=== PATIENT | female | born 1990 | race Caucasian/White ===

== ENCOUNTER 2020-05-19 08:44 | Emergency (ER) | payer OTHER, SELFPAY ==
--- NOTE | ~2020-05-19 | US_ITS ---
EXAMINATION: ULTRASOUND PELVIS COMPLETE AND DOPPLER. CLINICAL INFORMATION: Left lower quadrant abdominal pain. History of ovarian cyst. COMPARISON: Ultrasound abdomen 10/08/2018 TECHNIQUE: Retained transabdominal and transvaginal ultrasound pelvis is performed. In addition a Doppler evaluation both ovaries are performed. FINDINGS: The uterus is anteverted and anteflexed measuring 7.1 cm in length, 3.5 cm in AP and 4.4 cm in transverse dimension. Endometrial thickness is 0.4 cm. There are scattered echogenic areas in the endometrial likely blood. The uterus is homogeneous in echotexture. The right ovary measures 5.4 x 2.4 x 3.2 cm and volume 21.7 neural. There are multiple ovarian follicles seen. The left ovary measures 4.1 x 2.0 x 3 1 cm and volume 13.3 mL. There are multiple follicles seen. On Doppler exam there is normal arterial and venous flow seen to both ovaries. US/US pelvic ovarian doppler IMPRESSION: Multiple bilateral ovarian follicles noted. The uterus is unremarkable.
--- NOTE | ~2020-05-19 | US_ITS ---
EXAMINATION: ULTRASOUND PELVIS COMPLETE AND DOPPLER. CLINICAL INFORMATION: Left lower quadrant abdominal pain. History of ovarian cyst. COMPARISON: Ultrasound abdomen 10/08/2018 TECHNIQUE: Retained transabdominal and transvaginal ultrasound pelvis is performed. In addition a Doppler evaluation both ovaries are performed. FINDINGS: The uterus is anteverted and anteflexed measuring 7.1 cm in length, 3.5 cm in AP and 4.4 cm in transverse dimension. Endometrial thickness is 0.4 cm. There are scattered echogenic areas in the endometrial likely blood. The uterus is homogeneous in echotexture. The right ovary measures 5.4 x 2.4 x 3.2 cm and volume 21.7 neural. There are multiple ovarian follicles seen. The left ovary measures 4.1 x 2.0 x 3 1 cm and volume 13.3 mL. There are multiple follicles seen. On Doppler exam there is normal arterial and venous flow seen to both ovaries. US/US transvaginal IMPRESSION: Multiple bilateral ovarian follicles noted. The uterus is unremarkable.
--- NOTE | ~2020-05-19 | US_ITS ---
EXAMINATION: ULTRASOUND PELVIS COMPLETE AND DOPPLER. CLINICAL INFORMATION: Left lower quadrant abdominal pain. History of ovarian cyst. COMPARISON: Ultrasound abdomen 10/08/2018 TECHNIQUE: Retained transabdominal and transvaginal ultrasound pelvis is performed. In addition a Doppler evaluation both ovaries are performed. FINDINGS: The uterus is anteverted and anteflexed measuring 7.1 cm in length, 3.5 cm in AP and 4.4 cm in transverse dimension. Endometrial thickness is 0.4 cm. There are scattered echogenic areas in the endometrial likely blood. The uterus is homogeneous in echotexture. The right ovary measures 5.4 x 2.4 x 3.2 cm and volume 21.7 neural. There are multiple ovarian follicles seen. The left ovary measures 4.1 x 2.0 x 3 1 cm and volume 13.3 mL. There are multiple follicles seen. On Doppler exam there is normal arterial and venous flow seen to both ovaries. US/US pelvic complete IMPRESSION: Multiple bilateral ovarian follicles noted. The uterus is unremarkable.
--- NOTE | ~2020-05-19 | CT_ITS ---
EXAMINATION: CT ABDOMEN AND PELVIS WITH CONTRAST CLINICAL INFORMATION: Left lower quadrant abdominal pain for 3 days with constipation. Query diverticulitis. COMPARISON: None TECHNIQUE: Multidetector volumetric images were obtained from the superior aspect of the liver through the pubic symphysis following administration 82 mL of Omnipaque 350 intravenous contrast. Sagittal and coronal reformatted images were obtained on the technologist's workstation. Oral contrast: No This CT examination was performed using dose optimization techniques as appropriate, variously including the following: *Automated exposure control *Adjustment of mA and/or kV according to patient size (this includes techniques or standardized protocols for targeted exams where dose is matched to indication/reason for exam; i.e. extremities or head) *Use of iterative reconstruction technique DLP: 281 mGy-cm FINDINGS: LUNG BASES: The visualized lung bases are unremarkable. LIVER, GALLBLADDER, AND BILIARY TREE: The liver is normal in size, shape, and attenuation. There is a 1 cm cyst within the medial segment. No suspicious hepatic lesion or biliary ductal dilatation is present. Gallbladder unremarkable. PANCREAS: Unremarkable. SPLEEN: Unremarkable. ADRENAL GLANDS: Unremarkable. KIDNEYS AND URETERS: The kidneys are normal in size, shape, and attenuation. No hydronephrosis, hydroureter, or calculi seen. No perinephric stranding. BLADDER: Unremarkable. GASTROINTESTINAL TRACT: Mild constipation without colonic dilatation. No intestinal obstruction or inflammation. Appendix not well seen, however there are no inflammatory changes in the right lower quadrant to suggest appendicitis. ABDOMINAL WALL: No significant hernia is appreciated. LYMPH NODES: Normal. VASCULAR: Unremarkable. PELVIC VISCERA: Uterus and adnexa unremarkable. OSSEOUS STRUCTURES: Unremarkable. CT/CT abdomen pelvis w con IMPRESSION: No clear etiology for the patient's left lower quadrant pain is identified. Mild constipation without evidence of obstruction.
[2020-05-19 10:14] VITALS: BP 103/66; PULSE 65; RESP 18; TEMP 36.6; O2SAT 100; BMI 16.6
[2020-05-19] MEDS: Ketorolac Tromethamine 30 MG/ML VIAL IVPUSH (10:34)
[2020-05-19 10:54] LABS: MANUAL DIFF FLAG NO
[2020-05-19 10:59] LABS: Glucose Urine UA NEG (NEG); Leukocyte Esterase Urine NEG (NEG); Nitrite Urine NEG (NEG); Specific Gravity - Urine <= 1.005 (1.005-1.025); Urine Blood TRACE (NEG); Urine Ketones NEG (NEG); Urine Protein NEG (NEG-TRACE)
[2020-05-19 11:00] LABS: Appearance Urine CLEAR; Color Urine STRAW
--- NOTE | 2020-05-19 11:00 | ED.ABDPAIN ---
HPI - Abdominal Pain General Chief Complaint: Abdominal Pain Stated Complaint: lower left abd pain Time Seen by Provider: 05/19/20 09:17 Source: patient Mode of arrival: ambulatory Limitations: no limitations History of Present Illness HPI narrative: 30-year-old female with a past medical history of GERD, ovarian cyst, constipation, dysrhythmia, anxiety and depression presenting to the ED with complaints of intermittent pain to the left lower quadrant over the past 6 months worse during her menstrual cycle although worse within the past 3 days. Reports her last bowel movement was this morning and she has been going every morning although small amounts. Denies any other symptoms related to this. MD elicited complaint: abdominal pain Pertinent past history: constipation and other (Ovarian cyst) Onset (ago): day(s) (Three days) Pain Consistency: intermittent Location: LLQ Severity: moderate Quality: cramping and aching Radiation: none Migration to: no migration Exacerbating factors: nothing Relieving factors: nothing Associated symptoms: constipation Related Data Allergies Allergy/AdvReac Type Severity Reaction Status Date / Time sulfamethoxazole Allergy Mild RASH Unverified 11/24/19 19:43 [From BACTRIM] trimethoprim [From BACTRIM] Allergy Mild RASH Unverified 11/24/19 19:43 cefaclor [From Ceclor] Allergy Rash Verified 05/19/20 11:35 Review of Systems Review of Systems Constitutional : No Weight loss, No Fever, No Chills, No Night Sweats, No Fatigue, No Malaise ENT/Mouth: No ear pain, No sore throat, No Difficulty swallowing Cardiovascular : No Chest Pain, No SOB, No Dyspnea on Exertion, No Orthopnea, No Edema, No Palpitations Respiratory : No Cough, No Sputum, No Wheezing, No Dyspnea Gastrointestinal : + Abdominal pain, + Constipation, No Nausea, No Vomiting, No Diarrhea, No Hematochezia, No Melena Genitourinary : No irregular bleeding, No Dysuria, No Urinary Frequency, No Hematuria, No Urinary Incontinence, No Urgency, No Flank Pain Musculoskeletal : No joint pain, No Myalgias, No Joint Swelling Skin : No Skin Lesions, No rash Neuro : No Weakness, No Numbness, No Paresthesias, No Loss of Consciousness, NoDizziness, No Headache Psych : No Social Issues, Heme/Lymph: No Bruising, No Bleeding,No Lymphadenopathy Endocrine : No Polyuria, No Polydipsia, No Temperature Intolerance Yes all other systems are reviewed and are negative Physical Exam Vital Signs: Vital Signs: Last Vital Signs Temp 97.8 F 05/19/20 10:14 Pulse 75 05/19/20 12:17 Resp 18 05/19/20 12:17 BP 116/89 05/19/20 12:17 Pulse Ox 100 05/19/20 12:17 Body Mass Index 16.6 vital signs have been reviewed as normal and appeared to be correct. Blood pressure normal. Heart rate normal. Respiration rate normal. Temperature normal. Oxygen saturation normal. Appearance: Alert. Oriented X3. No acute distress. Head: Normal external exam. Normocephalic. Eyes: PERRLA. EOMI. Conjunctiva and sclera normal. Eyelids normal. ENT: Pharynx normal. Uvula midline. Moist mucous membranes. No trismus noted. No drooling noted. No muffled voice noted. Neck: Normal inspection. Neck supple. FROM. No adenopathy. No meningeal signs. CVS: Normal heart rate and rhythm. Heart sound normal. No murmurs noted. Pulses normal throughout. Respiratory: No respiratory distress. Painless inspiration. Breath sounds normal. No wheezes/rales/rhonchi noted. Chest nontender. No accessory muscle usage noted or decreased air movement noted. Abdomen: Soft and mild tenderness to left lower quadrant. Nondistended. No guarding. No rigidity. Bowel sounds normal in all 4 quadrants. No distention noted. No organomegaly noted. No visible injury noted. No rebound tenderness. Negative Rovsing sign. Negative obturator's sign. Negative psoas sign. Negative Smith sign. Back: No CVA tenderness. Full range of motion noted. Skin: Skin warm and dry. Normal skin color. Normal skin turgor. No rashes/lesions/lacerations noted. Extremities: Extremities exhibit normal range of motion. Extremities nontender. Neuro: Oriented X 3. No motor deficit. No sensory deficit. Reflexes normal. Course Course Course Narrative: 10:20am - 30-year-old female with a past medical history of GERD, ovarian cyst, constipation, dysrhythmia, anxiety and depression presenting to the ED with complaints of intermittent pain to the left lower quadrant over the past 6 months worse during her menstrual cycle although worse within the past 3 days - on exam patient is alert oriented x3. Not in any acute distress. Vital signs are stable within normal limits. Lungs CTA, CV RRR, Patient mild tenderness to left lower quadrant. No rebound tenderness. Not consistent with acute abdomen. No CVA tenderness. Patient neuro intact no focal neuro deficits noted. - concern for ovarian cyst vs ovarian torsion vs diverticulitis vs diverticulosis vs UTI/pyelonephritis. Less concerned for appendicitis or kidney stones - Plan: Labs, UA, UHCG, ovarian Doppler/pelvic/transvaginal ultrasound CT scan of abdomen and pelvis with IV contrast provided 30 mg of Toradol and a L of IV fluids and re-evaluate. Reevaluation(s) Reevaluation #1: - otherwise all other labs are within normal limits. Serum quant negative for . UA within normal limits no evidence of UTI. UHCG negative for . CT scan of abdomen and pelvis revealed constipation otherwise no other acute processes. Ovarian/pelvic/transvaginal ultrasound revealed bilateral ovarian follicles otherwise no other acute processes. - therefore I offered the patient symptomatic treatment although she refused reports that she does not like taking medications she will follow-up with her OBGYN and return if any new or worsening symptoms. Time: 13:08 [facility] - Abdominal Pain Medical Records Attestation: I reviewed the patient's medical records. Lab Data Attestation: I reviewed the patient's lab results. Result diagrams: 05/19/20 10:34 05/19/20 10:34 Labs: Lab Results 05/19/20 05/19/20 05/19/20 Range/Units 10:34 10:34 10:34 WBC 2.7 L (4.8-10.8) X10*3/uL RBC 4.53 (4.20-5.50) X10*6/uL Hgb 12.8 (12.0-16.0) g/dl Hct 39.5 (37-47) % MCV 87.2 (80-98) fL MCH 28.3 (27.0-33.0) pg MCHC 32.4 (31.0-35.0) g/dl RDW 12.4 (11.0-16.0) % Plt Count 244 (160-400) X10*3/uL MPV 9.5 (9.4-12.3) fL Immature Gran % (Auto) 0.4 (0.0-0.4) % Neut % (Auto) 49.6 (45-73) % Lymph % (Auto) 37.4 (20-40) % Wallace % (Auto) 10.0 (2-11) % Eos % (Auto) 1.9 (0-4) % Baso % (Auto) 0.7 (0-2) % Lymph # (Auto) 1.0 L (1.2-4.9) X10*3/uL Wallace # (Auto) 0.3 (0.1-1.2) X10*3/uL Eos # (Auto) 0.1 (0.0-0.4) X10*3/uL Baso # (Auto) 0.0 (0.0-0.2) X10*3/uL Abs Immat Gran (auto) 0.01 (0.00-0.03) X10*3/uL Absolute Neuts (auto) 1.3 L (2.0-8.3) X10*3/uL Absolute Nucleated RBC 0.000 (0.0-0.012) X10*3/uL Nucleated RBC % (auto) 0.0 (0.0-0.2) /100WBC PT 12.2 (10.8-13.0) SEC INR 1.0 (0.9-1.1) Sodium 139 (135-145) mmol/L Potassium 4.7 (3.3-5.1) mmol/L Chloride 106 (96-108) mmol/L Carbon Dioxide 27 (22-29) mmol/L Anion Gap 11 L (12-20) BUN 13 (9-16) mg/dL Creatinine 0.71 (0.5-1.4) mg/dL Estim Creat Clear Calc 81.4 Estimated GFR > 60 Random Glucose 77 (60-115) mg/dL Calcium 9.1 (8.4-10.2) mg/dL Magnesium 1.9 (1.6-2.6) mg/dL Total Bilirubin 0.7 (0.0-1.0) mg/dL Direct Bilirubin 0.2 (0.0-0.5) mg/dL AST 14 (5-31) U/L ALT 7 (0-31) U/L Alkaline Phosphatase 67 (39-117) U/L Total Protein 6.7 (6.5-8.0) g/dL Albumin 4.4 (3.5-5.0) g/dL Beta HCG, Quant mIU/mL Urine Color Urine Appearance Urine pH (5.0-8.0) Ur Specific [place] (1.005-1.025) Urine Protein (NEG-TRACE) MG/DL Urine Glucose (UA) (NEG) MG/DL Urine Ketones (NEG) MG/DL Urine Blood (NEG) Urine Nitrite (NEG) Ur Leukocyte Esterase (NEG) Urine RBC (0) /HPF Urine WBC (0-4) /HPF Ur Squamous Epith Cells /LPF Urine Bacteria /LPF Urine Test (NEGATIVE) 05/19/20 05/19/20 05/19/20 Range/Units 10:34 10:34 10:34 WBC (4.8-10.8) X10*3/uL RBC (4.20-5.50) X10*6/uL Hgb (12.0-16.0) g/dl Hct (37-47) % MCV (80-98) fL MCH (27.0-33.0) pg MCHC (31.0-35.0) g/dl RDW (11.0-16.0) % Plt Count (160-400) X10*3/uL MPV (9.4-12.3) fL Immature Gran % (Auto) (0.0-0.4) % Neut % (Auto) (45-73) % Lymph % (Auto) (20-40) % Wallace % (Auto) (2-11) % Eos % (Auto) (0-4) % Baso % (Auto) (0-2) % Lymph # (Auto) (1.2-4.9) X10*3/uL Wallace # (Auto) (0.1-1.2) X10*3/uL Eos # (Auto) (0.0-0.4) X10*3/uL Baso # (Auto) (0.0-0.2) X10*3/uL Abs Immat Gran (auto) (0.00-0.03) X10*3/uL Absolute Neuts (auto) (2.0-8.3) X10*3/uL Absolute Nucleated RBC (0.0-0.012) X10*3/uL Nucleated RBC % (auto) (0.0-0.2) /100WBC PT (10.8-13.0) SEC INR (0.9-1.1) Sodium (135-145) mmol/L Potassium (3.3-5.1) mmol/L Chloride (96-108) mmol/L Carbon Dioxide (22-29) mmol/L Anion Gap (12-20) BUN (9-16) mg/dL Creatinine (0.5-1.4) mg/dL Estim Creat Clear Calc Estimated GFR Random Glucose (60-115) mg/dL Calcium (8.4-10.2) mg/dL Magnesium (1.6-2.6) mg/dL Total Bilirubin (0.0-1.0) mg/dL Direct Bilirubin (0.0-0.5) mg/dL AST (5-31) U/L ALT (0-31) U/L Alkaline Phosphatase (39-117) U/L Total Protein (6.5-8.0) g/dL Albumin (3.5-5.0) g/dL Beta HCG, Quant < 2 mIU/mL Urine Color STRAW Urine Appearance CLEAR Urine pH 7.0 (5.0-8.0) Ur Specific [place] <= 1.005 (1.005-1.025) Urine Protein NEG (NEG-TRACE) MG/DL Urine Glucose (UA) NEG (NEG) MG/DL Urine Ketones NEG (NEG) MG/DL Urine Blood TRACE (NEG) Urine Nitrite NEG (NEG) Ur Leukocyte Esterase NEG (NEG) Urine RBC 0-2 (0) /HPF Urine WBC 0 (0-4) /HPF Ur Squamous Epith Cells 2+ /LPF Urine Bacteria TRACE /LPF Urine Test NEGATIVE (NEGATIVE) Imaging Data CT scan of abdomen pelvis with IV contrast: Attestation: I personally reviewed and interpreted this imaging study as follows: Radiologist's impression: FINDINGS: LUNG BASES: The visualized lung bases are unremarkable. LIVER, GALLBLADDER, AND BILIARY TREE: The liver is normal in size, shape, and attenuation. There is a 1 cm cyst within the medial segment. No suspicious hepatic lesion or biliary ductal dilatation is present. Gallbladder unremarkable. PANCREAS: Unremarkable. SPLEEN: Unremarkable. ADRENAL GLANDS: Unremarkable. KIDNEYS AND URETERS: The kidneys are normal in size, shape, and attenuation. No hydronephrosis, hydroureter, or calculi seen. No perinephric stranding. BLADDER: Unremarkable. GASTROINTESTINAL TRACT: Mild constipation without colonic dilatation. No intestinal obstruction or inflammation. Appendix not well seen, however there are no inflammatory changes in the right lower quadrant to suggest appendicitis. ABDOMINAL WALL: No significant hernia is appreciated. LYMPH NODES: Normal. VASCULAR: Unremarkable. PELVIC VISCERA: Uterus and adnexa unremarkable. OSSEOUS STRUCTURES: Unremarkable. CT/CT abdomen pelvis w con IMPRESSION: No clear etiology for the patient's left lower quadrant pain is identified. Mild constipation without evidence of obstruction. Pelvic/duplex ovarian ultrasound: Attestation: I personally reviewed and interpreted this imaging study as follows: Radiologist's impression: FINDINGS: The uterus is anteverted and anteflexed measuring 7.1 cm in length, 3.5 cm in AP and 4.4 cm in transverse dimension. Endometrial thickness is 0.4 cm. There are scattered echogenic areas in the endometrial likely blood. The uterus is homogeneous in echotexture. The right ovary measures 5.4 x 2.4 x 3.2 cm and volume 21.7 neural. There are multiple ovarian follicles seen. The left ovary measures 4.1 x 2.0 x 3 1 cm and volume 13.3 mL. There are multiple follicles seen. On Doppler exam there is normal arterial and venous flow seen to both ovaries. US/US transvaginal IMPRESSION: Multiple bilateral ovarian follicles noted. The uterus is unremarkable. Discharge Plan Discharge Clinical Impression: Constipation, Graafian follicle cyst Patient Disposition: Home, Self-Care Instructions: Ovarian Cyst (ED), Constipation (ED) Additional Instructions: I could not find information in our charting system for ovarian follicles therefore I gave you information for ovarian cyst due to your report he also had a history of that although the difference between follicles and psis are that follicles have microscopic oocyte (eggs) maturing inside of it a simple cyst does not. Please follow-up with your primary care provider/OBGYN for further evaluation and treatment. Return if any new or worsening symptoms. Referrals: Alma Verma MD [Primary Care Provider] - 2 days Bryce Sanchez MD [Physician] - 2 days Stand Alone Forms: Work/School Release Print Language: [place] [facility] Past Medical History Attestation statement: The following information was validated with the patient. Social History Social History Alcohol intake: current Alcohol intake frequency: a few times a month Smoking Status: Never smoker Use of substances other than those prescribed or required for medical reasons: No Advance Directives: No Advance Directives Information Provided: No
[2020-05-19 11:01] LABS: UPreg QC Valid YES; Urine Pregnancy NEGATIVE (NEGATIVE)
[2020-05-19 11:05] LABS: Prothrombin Time 12.2 SEC (10.8-13.0)
[2020-05-19 11:08] LABS: Basophils Percent Auto 0.7 % (0-2); Eosinophils Absolute Auto 0.1 X10*3/uL (0.0-0.4); Eosinophils Percent Auto 1.9 % (0-4); Hematocrit 39.5 % (37-47); Hemoglobin 12.8 g/dl (12.0-16.0); Imm Gran Abs Auto 0.01 X10*3/uL (0.00-0.03); Imm Gran Pct Auto 0.4 % (0.0-0.4); Lymphocytes Percent Auto 37.4 % (20-40); Mean Corpuscular HGB Conc 32.4 g/dl (31.0-35.0); Mean Corpuscular Hemoglobin 28.3 pg (27.0-33.0); Mean Corpuscular Volume 87.2 fL (80-98); Mean Platelet Volume 9.5 fL (9.4-12.3); Monocytes Absolute Auto 0.3 X10*3/uL (0.1-1.2); Neutrophils Absolute Auto 1.3 X10*3/uL (2.0-8.3); Neutrophils Percent Auto 49.6 % (45-73); Platelet Count 244 X10*3/uL (160-400); Red Blood Count 4.53 X10*6/uL (4.20-5.50); Red Cell Distribution Width 12.4 % (11.0-16.0); White Blood Count 2.7 X10*3/uL (4.8-10.8)
[2020-05-19 11:11] LABS: Bacteria Urine TRACE /LPF; RBC Urine 0-2 /HPF (0); Squamous Epithelial Cell Urine 2+ /LPF; WBC Urine 0 /HPF (0-4)
[2020-05-19 11:24] LABS: Alanine Aminotransferase 7 U/L (0-31); Albumin Level 4.4 g/dL (3.5-5.0); Alkaline Phosphatase 67 U/L (39-117); Anion Gap 11 (12-20); Aspartate Amino Transferase 14 U/L (5-31); Bilirubin Direct 0.2 mg/dL (0.0-0.5); Bilirubin Total 0.7 mg/dL (0.0-1.0); Blood Urea Nitrogen 13 mg/dL (9-16); Calcium 9.1 mg/dL (8.4-10.2); Carbon Dioxide 27 mmol/L (22-29); Chloride 106 mmol/L (96-108); Creatinine Clr Calc Pharmacy 81.4; Estimated Glomerular Filt Rate > 60; Glucose Random 77 mg/dL (60-115); Magnesium 1.9 mg/dL (1.6-2.6); Potassium 4.7 mmol/L (3.3-5.1); Sodium 139 mmol/L (135-145); Total Protein 6.7 g/dL (6.5-8.0)
[2020-05-19 11:26] LABS: HCG Quantitative < 2 mIU/mL
[2020-05-19] MEDS: 0.9 % Sodium Chloride 1,000 ML 999 ML IVCONT (11:34)
[2020-05-19 12:17] VITALS: BP 116/89; PULSE 75; RESP 18; O2SAT 100
--- NOTE | 2020-05-19 12:20 | PC.NURSE ---
Awaiting results of all imaging studies and disposition. IVF running.VSS
== END 2020-05-19 13:31 | disposition home or self-care (01) ==
PROVIDERS: Physician Assistant Medical; Emergency Provider Emergency Medicine; PCP Internal Medicine
DX: K59.00 Constipation, unspecified (principal); N83.02 Follicular cyst of left ovary; N83.01 Follicular cyst of right ovary; R10.32 Left lower quadrant pain
CPT/HCPCS: 36415; 74177; 76830; 76856; 80048; 80076; 81001; 81025; 83735; 84702; 85025; 85610; 93975; 96361; 96365; 96375; 99284; J1885; Q9967

== ENCOUNTER 2021-03-18 12:24 | Outpatient (REF) | payer OTHER, SELFPAY ==
--- NOTE | ~2021-03-18 | XR_ITS ---
EXAMINATION: XR CHEST CLINICAL INFORMATION: Pneumonia COMPARISON: None TECHNIQUE: 2 views of the chest were obtained. FINDINGS: No significant abnormality is noted involving the heart, lungs, mediastinum, bony thorax or soft tissues. XR/XR chest 2V IMPRESSION: Unremarkable chest examination.
[2021-03-18 13:20] LABS: Binax Internal Control QC Valid; Binax Now Covid-19 Ag Negative (Negative)
== END 2021-03-18 12:25 | disposition home or self-care (01) ==
LOC: HO.HMGCX 12:24
PROVIDERS: Visit Provider Internal Medicine
DX: J18.9 Pneumonia, unspecified organism (principal); J06.9 Acute upper respiratory infection, unspecified
CPT/HCPCS: 36415; 71046

== ENCOUNTER 2021-05-22 20:26 | Emergency (ER) | payer OTHER, MEDICAID, SELFPAY ==
--- NOTE | ~2021-05-22 | US_ITS ---
EXAMINATION: US PELVIS CLINICAL INFORMATION: Left lower quadrant pain with history of 5 cm ovarian cyst COMPARISON: Ultrasound pelvis and CT abdomen pelvis 05/19/2020 TECHNIQUE: Ultrasound of the pelvis is performed using both transabdominal and transvaginal transducers along with Doppler. Transvaginal imaging is performed due to inadequate visualization transabdominally. FINDINGS: Uterus: The anteverted uterus is anteverted and measures 7.5 x 3.5 x 4.2 cm for a volume of 58 mL. The double wall endometrial thickness is 0.4 mm. The uterus is smooth in contour and has normal myometrial echogenicity. No visible fibroid. Adnexa: Both ovaries are visualized. There is normal color flow to the adnexa. There is no ovarian torsion. There is no pelvic ascites or fluid collection. Right ovary measures 3.8 x 2.0 x 2.1 CM for a volume of 8.4 mL Left ovary measures 6.5 x 6.3 x 6.0 cm for a volume of 129 mL and contains a 5.6 x 4.4 x 5.3 cm complex ovarian cyst. This is a new finding when compared to the prior study and most likely represents a hemorrhagic cyst. US/US pelvic complete IMPRESSION: Large 5.6 cm complex ovarian cyst with low level echoes throughout and some anechoic areas. Follow-up study is recommended in 3 months time. No evidence of ovarian torsion.
[2021-05-22 20:36] VITALS: BP 142/76; PULSE 63; RESP 16; TEMP 36.7; O2SAT 100; BMI 18.3
[2021-05-22 21:40] LABS: MANUAL DIFF FLAG NO
[2021-05-22 21:41] LABS: Basophils Percent Auto 0.3 % (0-2); Eosinophils Absolute Auto 0.1 X10*3/uL (0.0-0.4); Eosinophils Percent Auto 1.1 % (0-4); Hemoglobin 12.2 g/dl (12.0-16.0); Imm Gran Abs Auto 0.02 X10*3/uL (0.00-0.03); Imm Gran Pct Auto 0.3 % (0.0-0.4); Lymphocytes Percent Auto 31.9 % (20-40); Mean Corpuscular HGB Conc 33.9 g/dl (31.0-35.0); Mean Corpuscular Volume 85.7 fL (80.0-98.0); Mean Platelet Volume 9.4 fL (9.4-12.3); Monocytes Absolute Auto 0.4 X10*3/uL (0.1-1.2); Monocytes Percent Auto 6.6 % (2-11); Neutrophils Absolute Auto 3.8 x10*3/uL (2.0-8.3); Neutrophils Percent Auto 59.8 % (45-73); Platelet Count 251 X10*3/uL (160-400); Red Cell Distribution Width 11.9 % (11.0-16.0); White Blood Count 6.4 X10*3/uL (4.8-10.8)
[2021-05-22 21:48] LABS: Appearance Urine CLEAR; Color Urine STRAW; Glucose Urine UA NEG (NEG); Leukocyte Esterase Urine NEG (NEG); Nitrite Urine NEG (NEG); PH 6.5 (5.0-8.0); Specific Gravity - Urine <= 1.005 (1.005-1.025); Urine Blood NEG (NEG); Urine Ketones NEG (NEG); Urine Protein NEG (NEG-TRACE)
[2021-05-22 21:49] LABS: UPreg QC Valid YES; Urine Pregnancy NEGATIVE (NEGATIVE)
[2021-05-22 21:53] LABS: RBC Urine 0 /HPF (0); Squamous Epithelial Cell Urine TRACE /LPF; WBC Urine 0 /HPF (0-4)
[2021-05-22 21:58] LABS: Anion Gap 11 (12-20); Blood Urea Nitrogen 9 mg/dL (9-16); Carbon Dioxide 23 mmol/L (22-29); Chloride 99 mmol/L (96-108); Creatinine Clr Calc Pharmacy 96.9; Estimated Glomerular Filt Rate > 60; Glucose Random 81 mg/dL (60-115); Potassium 4.3 mmol/L (3.3-5.1); Sodium 129 mmol/L (135-145)
[2021-05-22 22:21] VITALS: BP 108/73; PULSE 57; RESP 16; TEMP 37.1; O2SAT 100
--- NOTE | 2021-05-22 22:25 | ED_ITS ---
HPI - Female Genitourinary General Chief complaint: Abdominal Pain Stated complaint: ovarian cysts..abd pain Time Seen by Provider: 05/22/21 22:24 Source: patient Mode of arrival: ambulatory Limitations: no limitations History of Present Illness HPI Narrative: Patient history of bilateral ovarian cyst had ultrasound done in 04/30 at PCP's office showed left ovarian cyst 5 cm and right ovarian cyst 2.5 cm today since 15:00 patient noticed pain in left lower abdomen with slight dizziness and nausea no vomiting no urinary complaints patient does have history of constipation but last bowel movement was yesterday after arrival patient feeling much better now Related Data Home Medications Medication Instructions Recorded Confirmed levocetirizine 5 mg tablet (Xyzal) 5 mg PO DAILY 08/28/20 pantoprazole 20 mg tablet,delayed 20 mg PO BID tab 08/28/20 release Previous Rx's Medication Instructions Recorded fluticasone propionate 50 2 spray INTRANASAL DAILY #16 g 08/28/20 mcg/actuation nasal spray,suspension (Flonase Allergy Relief) prednisone 20 mg tablet 40 mg PO DAILY 5 Days #10 tab 08/28/20 albuterol sulfate 90 mcg/actuation 1 inh INHALATION QID PRN #6.7 g 03/18/21 aerosol inhaler doxycycline hyclate 100 mg tablet 100 mg PO BID #20 tab 03/18/21 ondansetron 4 mg disintegrating 4 mg PO Q6H PRN #20 tab 03/18/21 tablet ibuprofen 600 mg tablet 600 mg PO Q6H PRN #20 tab 05/23/21 tramadol 50 mg tablet 50 mg PO Q6H PRN #20 tab 05/23/21 Allergies Allergy/AdvReac Type Severity Reaction Status Date / Time sulfamethoxazole Allergy Mild RASH Verified 03/18/21 12:03 [From BACTRIM] trimethoprim [From BACTRIM] Allergy Mild RASH Verified 03/18/21 12:03 cefaclor [From Ceclor] Allergy Rash Verified 03/18/21 12:03 Review of Systems Review of Systems: Yes all other systems are reviewed and are negative [facility] Past Medical History Medical History (Updated 05/23/21 @ 00:21 by Alberto Lin MD) Ovarian cyst Social History Social History Alcohol intake: current Alcohol intake frequency: a few times a month Patient Tobacco Use Status: Never used Tobacco Advance Directives: No Patient : No Physical Exam Vital Signs: Vital Signs: Last Vital Signs Temp 98.8 F 05/22/21 22:21 Pulse 57 05/22/21 22:21 Resp 16 05/22/21 22:21 BP 108/73 05/22/21 22:21 Pulse Ox 100 05/22/21 22:21 BMI result Body Mass Index 18.3 Appearance: Alert. Oriented X3. No acute distress. ENT: Pharynx normal. Oral Mucosa moist Neck: Normal inspection. Neck supple. CVS: Normal heart rate and rhythm. Pulses normal. Respiratory: No respiratory distress. Equal air entry bilateral, Abdomen: Soft , left lower quadrant tenderness, no rebound tenderness Bowel sounds are present, no mass palpable, no CVA tenderness Skin: Skin warm and dry. Normal skin color. Normal skin turgor. Extremities: No lower extremity edema. No calf tenderness Neuro: Oriented X 3. MDM - Female Genitourinary MDM Narrative Medical decision making narrative: Patient ultrasound showed same size left ovarian cyst with likely hemorrhage inside. There is a cause of the pain. Patient feeling much better now. Patient advised to follow with community resource consultant Lab Data Attestation: I reviewed the patient's lab results. Result diagrams: 05/22/21 21:35 05/22/21 21:35 Labs: Lab Results 05/22/21 05/22/21 05/22/21 Range/Units 21:35 21:35 21:35 WBC 6.4 (4.8-10.8) X10*3/uL RBC 4.20 (4.20-5.50) X10*6/uL Hgb 12.2 (12.0-16.0) g/dl Hct 36.0 L (37.0-47.0) % MCV 85.7 (80.0-98.0) fL MCH 29.0 (27.0-33.0) pg MCHC 33.9 (31.0-35.0) g/dl RDW 11.9 (11.0-16.0) % Plt Count 251 (160-400) X10*3/uL MPV 9.4 (9.4-12.3) fL Immature Gran % (Auto) 0.3 (0.0-0.4) % Neut % (Auto) 59.8 (45-73) % Lymph % (Auto) 31.9 (20-40) % Geary % (Auto) 6.6 (2-11) % Eos % (Auto) 1.1 (0-4) % Baso % (Auto) 0.3 (0-2) % Lymph # (Auto) 2.0 (1.2-4.9) X10*3/uL Geary # (Auto) 0.4 (0.1-1.2) X10*3/uL Eos # (Auto) 0.1 (0.0-0.4) X10*3/uL Baso # (Auto) 0.0 (0.0-0.2) X10*3/uL Abs Immat Gran (auto) 0.02 (0.00-0.03) X10*3/uL Absolute Neuts (auto) 3.8 (2.0-8.3) x10*3/uL Absolute Nucleated RBC 0.000 (0.0-0.012) X10*3/uL Nucleated RBC % (auto) 0.0 (0.0-0.2) /100WBC Sodium 129 L (135-145) mmol/L Potassium 4.3 (3.3-5.1) mmol/L Chloride 99 (96-108) mmol/L Carbon Dioxide 23 (22-29) mmol/L Anion Gap 11 L (12-20) BUN 9 (9-16) mg/dL Creatinine 0.65 (0.5-1.4) mg/dL Estim Creat Clear Calc 96.9 Estimated GFR > 60 Random Glucose 81 (60-115) mg/dL Calcium 9.0 (8.4-10.2) mg/dL Urine Color STRAW Urine Appearance CLEAR Urine pH 6.5 (5.0-8.0) Ur Specific [place] <= 1.005 (1.005-1.025) Urine Protein NEG (NEG-TRACE) MG/DL Urine Glucose (UA) NEG (NEG) MG/DL Urine Ketones NEG (NEG) MG/DL Urine Blood NEG (NEG) Urine Nitrite NEG (NEG) Ur Leukocyte Esterase NEG (NEG) Urine RBC 0 (0) /HPF Urine WBC 0 (0-4) /HPF Ur Squamous Epith Cells TRACE /LPF Urine Bacteria NONE /LPF Urine Test (NEGATIVE) 05/22/21 Range/Units 21:35 WBC (4.8-10.8) X10*3/uL RBC (4.20-5.50) X10*6/uL Hgb (12.0-16.0) g/dl Hct (37.0-47.0) % MCV (80.0-98.0) fL MCH (27.0-33.0) pg MCHC (31.0-35.0) g/dl RDW (11.0-16.0) % Plt Count (160-400) X10*3/uL MPV (9.4-12.3) fL Immature Gran % (Auto) (0.0-0.4) % Neut % (Auto) (45-73) % Lymph % (Auto) (20-40) % [place]ary % (Auto) (2-11) % Eos % (Auto) (0-4) % Baso % (Auto) (0-2) % Lymph # (Auto) (1.2-4.9) X10*3/uL [place]ary # (Auto) (0.1-1.2) X10*3/uL Eos # (Auto) (0.0-0.4) X10*3/uL Baso # (Auto) (0.0-0.2) X10*3/uL Abs Immat Gran (auto) (0.00-0.03) X10*3/uL Absolute Neuts (auto) (2.0-8.3) x10*3/uL Absolute Nucleated RBC (0.0-0.012) X10*3/uL Nucleated RBC % (auto) (0.0-0.2) /100WBC Sodium (135-145) mmol/L Potassium (3.3-5.1) mmol/L Chloride (96-108) mmol/L Carbon Dioxide (22-29) mmol/L Anion Gap (12-20) BUN (9-16) mg/dL Creatinine (0.5-1.4) mg/dL Estim Creat Clear Calc Estimated GFR Random Glucose (60-115) mg/dL Calcium (8.4-10.2) mg/dL Urine Color Urine Appearance Urine pH (5.0-8.0) Ur Specific [place] (1.005-1.025) Urine Protein (NEG-TRACE) MG/DL Urine Glucose (UA) (NEG) MG/DL Urine Ketones (NEG) MG/DL Urine Blood (NEG) Urine Nitrite (NEG) Ur Leukocyte Esterase (NEG) Urine RBC (0) /HPF Urine WBC (0-4) /HPF Ur Squamous Epith Cells /LPF Urine Bacteria /LPF Urine Test NEGATIVE (NEGATIVE) Discharge Plan Discharge Clinical Impression: Ovarian cyst Patient Disposition: Home, Self-Care Instructions: Ovarian Cyst (ED) Additional Instructions: Take ibuprofen for pain Follow-up with shoe patternmaker Report to the ER if increasing pain Prescriptions: New tramadol 50 mg tablet 50 mg PO Q6H PRN (Reason: pain) Qty: 20 0RF ibuprofen 600 mg tablet 600 mg PO Q6H PRN (Reason: pain) Qty: 20 0RF No Action pantoprazole 20 mg tablet,delayed release (DR/EC) 20 mg PO BID 0RF levocetirizine [Xyzal] 5 mg tablet 5 mg PO DAILY 0RF prednisone 20 mg tablet 40 mg PO DAILY 5 Days Qty: 10 0RF fluticasone propionate [Flonase Allergy Relief] 50 mcg/actuation spray,suspension 2 spray intranasal DAILY Qty: 16 0RF Rx Instructions: administer into each nostril ondansetron 4 mg tablet,disintegrating 4 mg PO Q6H PRN (Reason: nausea and vomiting) Qty: 20 0RF albuterol sulfate 90 mcg/actuation HFA aerosol inhaler 1 inh inhalation QID PRN (Reason: shortness of breath or wheezing) Qty: 6.7 1RF doxycycline hyclate 100 mg tablet 100 mg PO BID Qty: 20 0RF Referrals: Bryce Sanchez MD [Physician] - 1 week Interventions: ED Discharge Assessment Last Done: 05/23/21 00:43 Discharge Date/Time: 05/23/21 00:48
== END 2021-05-23 00:48 | disposition home or self-care (01) ==
PROVIDERS: Emergency Provider Internal Medicine; PCP Internal Medicine
DX: R10.2 Pelvic and perineal pain (principal); N83.202 Unspecified ovarian cyst, left side; N83.201 Unspecified ovarian cyst, right side; Z79.899 Other long term (current) drug therapy
CPT/HCPCS: 36415; 76856; 80048; 81001; 81025; 85025; 99284

== ENCOUNTER 2021-07-08 13:49 | Emergency (ER) | payer OTHER, MEDICAID, SELFPAY ==
--- NOTE | ~2021-07-08 | CT_ITS ---
EXAMINATION: CT ABDOMEN AND PELVIS WITH CONTRAST CLINICAL INFORMATION: Left lower quadrant pain, history of ovarian cyst COMPARISON: 05/19/2020 TECHNIQUE: Multidetector volumetric images were obtained from the superior aspect of the liver through the pubic symphysis following administration 85 mL of Omnipaque 350 intravenous contrast. Sagittal and coronal reformatted images were obtained on the technologist's workstation. Oral contrast: No This CT examination was performed using dose optimization techniques as appropriate, variously including the following: *Automated exposure control *Adjustment of mA and/or kV according to patient size (this includes techniques or standardized protocols for targeted exams where dose is matched to indication/reason for exam; i.e. extremities or head) *Use of iterative reconstruction technique DLP: 288 mGy-cm FINDINGS: LUNG BASES: The visualized lung bases are unremarkable. LIVER, GALLBLADDER, AND BILIARY TREE: The liver is normal in size, shape, and attenuation. A few tiny scattered subcentimeter hypoattenuating foci in the liver suggestive of cysts. No biliary ductal dilatation is present. The gallbladder is unremarkable with no evidence of radiopaque gallstones, gallbladder wall thickening, or obvious pericholecystic inflammatory changes. PANCREAS: Unremarkable. SPLEEN: Unremarkable. ADRENAL GLANDS: Unremarkable. KIDNEYS AND URETERS: Bilateral nephrograms are symmetric. No hydronephrosis or obstructing calculus identified. BLADDER: Unremarkable. GASTROINTESTINAL TRACT: No evidence of bowel obstruction. No significant colonic wall thickening or pericolonic inflammation is identified. The distal portion of the appendix appears borderline dilated (coronal image 39) without significant adjacent inflammatory change. Small amount of pelvic free fluid is present. No free air is seen. ABDOMINAL WALL: No significant hernia is appreciated. LYMPH NODES: Normal. VASCULAR: Unremarkable. PELVIC VISCERA: Unremarkable for patient age. OSSEOUS STRUCTURES: There is degenerative disc disease at L5-S1 with surrounding degenerative endplate change. CT/CT abdomen pelvis w con IMPRESSION: Small amount of nonspecific pelvic free fluid, which may be physiologic. Distal appendix appears borderline dilated, of uncertain clinical significance and without additional convincing findings of appendicitis. Fleischner guidelines were followed.
[2021-07-08 14:58] VITALS: BP 115/83; PULSE 69; RESP 14; TEMP 36.3; O2SAT 99; BMI 18.3
[2021-07-08 15:31] LABS: Appearance Urine HAZY; Color Urine STRAW; Glucose Urine UA NEG (NEG); Leukocyte Esterase Urine NEG (NEG); Nitrite Urine NEG (NEG); PH 6.5 (5.0-8.0); Specific Gravity - Urine <= 1.005 (1.005-1.025); Urine Blood NEG (NEG); Urine Ketones NEG (NEG); Urine Protein NEG (NEG-TRACE)
[2021-07-08 15:34] LABS: UPreg QC Valid YES; Urine Pregnancy NEGATIVE (NEGATIVE)
--- NOTE | 2021-07-08 22:53 | ED_ITS ---
HPI - General Adult General Chief complaint: Abdominal Pain Stated complaint: ovarian cyst, abd pain Time Seen by Provider: 07/08/21 21:20 Source: patient Limitations: no limitations History of Present Illness HPI narrative: This is a 31-year-old female with history of left ovarian cyst complains of pain in her left lower quadrant for a few days. The patient has had similar pain in the past. She was seen here May 22 and had an ultrasound showing a left ovarian cyst. She says that the cyst had ?gotten smaller? after this. She has had more general left lower quadrant pain, not just in her pelvic area, and states that her machine bander and cellophaner helper had recommended she have a CT scan. Patient denies any fever. She has had mild nausea no vomiting. She denies any constipation or diarrhea. She states she has tried using Aleve, Tylenol, and tramadol without relief. She notes that a few weeks ago she did have some rectal bleeding, but has not had any recently. She denies any urinary symptoms. Related Data Home Medications Medication Instructions Recorded Confirmed levocetirizine 5 mg tablet (Xyzal) 5 mg PO DAILY 08/28/20 pantoprazole 20 mg tablet,delayed 20 mg PO BID tab 08/28/20 release Previous Rx's Medication Instructions Recorded fluticasone propionate 50 2 spray INTRANASAL DAILY #16 g 08/28/20 mcg/actuation nasal spray,suspension (Flonase Allergy Relief) prednisone 20 mg tablet 40 mg PO DAILY 5 Days #10 tab 08/28/20 albuterol sulfate 90 mcg/actuation 1 inh INHALATION QID PRN #6.7 g 03/18/21 aerosol inhaler doxycycline hyclate 100 mg tablet 100 mg PO BID #20 tab 03/18/21 ondansetron 4 mg disintegrating 4 mg PO Q6H PRN #20 tab 03/18/21 tablet ibuprofen 600 mg tablet 600 mg PO Q6H PRN #20 tab 05/23/21 tramadol 50 mg tablet 50 mg PO Q6H PRN #20 tab 05/23/21 Allergies Allergy/AdvReac Type Severity Reaction Status Date / Time sulfamethoxazole Allergy Mild RASH Verified 03/18/21 12:03 [From BACTRIM] trimethoprim [From BACTRIM] Allergy Mild RASH Verified 03/18/21 12:03 cefaclor [From Ceclor] Allergy Rash Verified 03/18/21 12:03 Review of Systems Review of Systems: Yes all other systems are reviewed and are negative Constitutional: Constitutional: Reports as per HPI and Denies fever(s) Eyes: Eyes: Reports as per HPI and Reports no additional eye complaints ENT: Reports system reviewed and no additional complaints, except as documented, Reports as per HPI, Denies nasal congestion, Denies nasal discharge and Denies sore throat Cardiovascular: Cardiovascular: Reports as per HPI, Denies chest pain and Denies dyspnea Respiratory: Respiratory: Reports as per HPI, Denies cough and Denies dyspnea Gastrointestinal: Gastrointestinal: Reports as per HPI, Reports abdominal pain, Denies diarrhea, Reports nausea and Denies vomiting Genitourinary: Genitourinary: Reports as per HPI, Denies hematuria, Denies urinary frequency and Denies dysuria Musculoskeletal: Musculoskeletal: Reports no additional musculoskeletal complaints and Denies numbness Integumentary/Breasts: Skin/Breast: Reports as per HPI and Denies rash Neurologic: Reports as per HPI, Denies focal weakness and Denies numbness Psychiatric: Psychiatric: Reports no additional psychiatric complaints and Reports as per HPI Endocrine: Endocrine: Reports no additional endocrine complaints and Reports as per HPI Hematologic/Lymphatic: Hematologic/Lymphatic: Reports no additional hematologic/lymphatic complaints, Reports as per HPI and Reports other (No peripheral edema) PENDING SALE TO [facility] Past Medical History Medical History (Updated 07/09/21 @ 02:26 by Matias Hobson MD) Ovarian cyst Social History Social History Alcohol intake: current Alcohol intake frequency: a few times a month Patient Tobacco Use Status: Never used Tobacco Advance Directives: No Advance Directives Information Provided: No Physical Exam ED Vital Signs: Vital Signs - 24 hr 07/08/21 14:58 07/08/21 23:57 Temperature 97.4 F Pulse Rate 69 59 Respiratory Rate 14 14 Blood Pressure 115/83 105/69 Pulse Oximetry 99 96 BMI result Body Mass Index 18.3 Const Other: Patient overall not ill appearing, is able to the set up on the gurney easily. Patient is thin appearing General: no acute distress Orientation/consciousness: patient oriented x3 HENMT Head: Yes normal to inspection General nose exam: Normal external nose present Mouth: moist mucous membranes Throat: Yes posterior oropharynx normal, Yes tonsils normal and Yes uvula midline Eyes Eyelids: Yes eyelids normal Conjunctivae: conjunctivae normal Pupils: Equal, round and reactive pupils present Neck Neck: Yes supple Resp Effort & Inspection: normal respiratory effort Auscultation: clear to auscultation bilaterally Cardio Rate: regular rate Rhythm: regular rhythm Heart sounds: S1 normal heart sound present, S2 normal heart sound present, no gallops, no murmurs and no rubs GI Inspection: No distended Palpation (GI): Soft to palpation and Tenderness to palpation present (GI) (Mild left lower quadrant) Auscultation: normal bowel sounds Skin General skin exam: other (Warm and dry) Neuro General: patient oriented x3 and CN's II-XI intact bilaterally Cranial nerves: Yes Equal, round and reactive pupils present Extrem General: Yes no pedal edema Psych Affect: normal affect Attitude: cooperative Medical Decision Making MDM Narrative Medical decision making narrative: Patient with preoccupation about pain in her left lower quadrant. She apparently has had this for some time and had a CT scan done about a year ago which only showed constipation. She does have a history of left ovarian cyst. She apparently has been seen by Gastroenterology regarding her pain. Urinalysis, labs, CT scan today showed no concerning findings. Patient appears to have some anxiety element or hypochondriasis. Patient is safe for outpatient follow-up. Lab Data Lab results reviewed: Yes I reviewed the patient's lab results. Result diagrams: 07/09/21 00:05 07/09/21 00:05 Labs: Lab Results 07/08/21 07/08/21 07/09/21 Range/Units 15:06 15:06 00:05 WBC 4.6 L (4.8-10.8) X10*3/uL RBC 4.32 (4.20-5.50) X10*6/uL Hgb 12.4 (12.0-16.0) g/dl Hct 37.6 (37.0-47.0) % MCV 87.0 (80.0-98.0) fL MCH 28.7 (27.0-33.0) pg MCHC 33.0 (31.0-35.0) g/dl RDW 12.1 (11.0-16.0) % Plt Count 310 (160-400) X10*3/uL MPV 9.8 (9.4-12.3) fL Immature Gran % (Auto) 0.2 (0.0-0.4) % Neut % (Auto) 49.2 (45-73) % Lymph % (Auto) 39.5 (20-40) % Stokes % (Auto) 7.6 (2-11) % Eos % (Auto) 3.1 (0-4) % Baso % (Auto) 0.4 (0-2) % Lymph # (Auto) 1.8 (1.2-4.9) X10*3/uL Stokes # (Auto) 0.4 (0.1-1.2) X10*3/uL Eos # (Auto) 0.1 (0.0-0.4) X10*3/uL Baso # (Auto) 0.0 (0.0-0.2) X10*3/uL Abs Immat Gran (auto) 0.01 (0.00-0.03) X10*3/uL Absolute Neuts (auto) 2.3 (2.0-8.3) x10*3/uL Absolute Nucleated RBC 0.000 (0.0-0.012) X10*3/uL Nucleated RBC % (auto) 0.0 (0.0-0.2) /100WBC Sodium (135-145) mmol/L Potassium (3.3-5.1) mmol/L Chloride (96-108) mmol/L Carbon Dioxide (22-29) mmol/L Anion Gap (12-20) BUN (9-16) mg/dL Creatinine (0.5-1.4) mg/dL Estim Creat Clear Calc Estimated GFR Random Glucose (60-115) mg/dL Calcium (8.4-10.2) mg/dL Total Bilirubin (0.0-1.0) mg/dL AST (5-31) U/L ALT (0-31) U/L Alkaline Phosphatase (39-117) U/L Total Protein (6.5-8.0) g/dL Albumin (3.5-5.0) g/dL Urine Color STRAW Urine Appearance HAZY Urine pH 6.5 (5.0-8.0) Ur Specific [place] <= 1.005 (1.005-1.025) Urine Protein NEG (NEG-TRACE) MG/DL Urine Glucose (UA) NEG (NEG) MG/DL Urine Ketones NEG (NEG) MG/DL Urine Blood NEG (NEG) Urine Nitrite NEG (NEG) Ur Leukocyte Esterase NEG (NEG) Urine Test NEGATIVE (NEGATIVE) 07/09/21 Range/Units 00:05 WBC (4.8-10.8) X10*3/uL RBC (4.20-5.50) X10*6/uL Hgb (12.0-16.0) g/dl Hct (37.0-47.0) % MCV (80.0-98.0) fL MCH (27.0-33.0) pg MCHC (31.0-35.0) g/dl RDW (11.0-16.0) % Plt Count (160-400) X10*3/uL MPV (9.4-12.3) fL Immature Gran % (Auto) (0.0-0.4) % Neut % (Auto) (45-73) % Lymph % (Auto) (20-40) % Stokes % (Auto) (2-11) % Eos % (Auto) (0-4) % Baso % (Auto) (0-2) % Lymph # (Auto) (1.2-4.9) X10*3/uL Stokes # (Auto) (0.1-1.2) X10*3/uL Eos # (Auto) (0.0-0.4) X10*3/uL Baso # (Auto) (0.0-0.2) X10*3/uL Abs Immat Gran (auto) (0.00-0.03) X10*3/uL Absolute Neuts (auto) (2.0-8.3) x10*3/uL Absolute Nucleated RBC (0.0-0.012) X10*3/uL Nucleated RBC % (auto) (0.0-0.2) /100WBC Sodium 137 (135-145) mmol/L Potassium 4.5 (3.3-5.1) mmol/L Chloride 105 (96-108) mmol/L Carbon Dioxide 26 (22-29) mmol/L Anion Gap 11 L (12-20) BUN 8 L (9-16) mg/dL Creatinine 0.67 (0.5-1.4) mg/dL Estim Creat Clear Calc 94.0 Estimated GFR > 60 Random Glucose 105 (60-115) mg/dL Calcium 9.2 (8.4-10.2) mg/dL Total Bilirubin 0.5 (0.0-1.0) mg/dL AST 13 (5-31) U/L ALT 9 (0-31) U/L Alkaline Phosphatase 53 D (39-117) U/L Total Protein 6.4 L (6.5-8.0) g/dL Albumin 4.0 (3.5-5.0) g/dL Urine Color Urine Appearance Urine pH (5.0-8.0) Ur Specific [place] (1.005-1.025) Urine Protein (NEG-TRACE) MG/DL Urine Glucose (UA) (NEG) MG/DL Urine Ketones (NEG) MG/DL Urine Blood (NEG) Urine Nitrite (NEG) Ur Leukocyte Esterase (NEG) Urine Test (NEGATIVE) Imaging Data CT scan abdomen and pelvis with IV contrast: Radiologist's impression: IMPRESSION: Small amount of nonspecific pelvic free fluid, which may be physiologic. Distal appendix appears borderline dilated, of uncertain clinical significance and without additional convincing findings of appendicitis. ? Discharge Plan Discharge Clinical Impression: Chronic left lower quadrant pain, Anxiety Patient Disposition: Home, Self-Care Additional Instructions: Follow-up with her primary care physician, or machine bander and cellophaner helper. Use ibuprofen as needed for pain. Prescriptions: No Action tramadol 50 mg tablet 50 mg PO Q6H PRN (Reason: pain) Qty: 20 0RF ibuprofen 600 mg tablet 600 mg PO Q6H PRN (Reason: pain) Qty: 20 0RF pantoprazole 20 mg tablet,delayed release (DR/EC) 20 mg PO BID 0RF levocetirizine [Xyzal] 5 mg tablet 5 mg PO DAILY 0RF prednisone 20 mg tablet 40 mg PO DAILY 5 Days Qty: 10 0RF fluticasone propionate [Flonase Allergy Relief] 50 mcg/actuation spray,suspension 2 spray intranasal DAILY Qty: 16 0RF Rx Instructions: administer into each nostril ondansetron 4 mg tablet,disintegrating 4 mg PO Q6H PRN (Reason: nausea and vomiting) Qty: 20 0RF albuterol sulfate 90 mcg/actuation HFA aerosol inhaler 1 inh inhalation QID PRN (Reason: shortness of breath or wheezing) Qty: 6.7 1RF doxycycline hyclate 100 mg tablet 100 mg PO BID Qty: 20 0RF
[2021-07-08 23:57] VITALS: BP 105/69; PULSE 59; RESP 14; O2SAT 96
[2021-07-09 00:12] LABS: MANUAL DIFF FLAG NO
[2021-07-09] MEDS: Ketorolac Tromethamine 15 MG/ML VIAL IVPUSH (00:13)
[2021-07-09 00:29] LABS: Alanine Aminotransferase 9 U/L (0-31); Alkaline Phosphatase 53 U/L (39-117); Anion Gap 11 (12-20); Aspartate Amino Transferase 13 U/L (5-31); Bilirubin Total 0.5 mg/dL (0.0-1.0); Blood Urea Nitrogen 8 mg/dL (9-16); Calcium 9.2 mg/dL (8.4-10.2); Carbon Dioxide 26 mmol/L (22-29); Chloride 105 mmol/L (96-108); Estimated Glomerular Filt Rate > 60; Glucose Random 105 mg/dL (60-115); Potassium 4.5 mmol/L (3.3-5.1); Sodium 137 mmol/L (135-145); Total Protein 6.4 g/dL (6.5-8.0)
[2021-07-09] MEDS: iohexoL 350 MG/ML 100 ML INFUS..BTL 85 ML IV (01:09)
[2021-07-09 01:45] LABS: Basophils Percent Auto 0.4 % (0-2); Eosinophils Absolute Auto 0.1 X10*3/uL (0.0-0.4); Eosinophils Percent Auto 3.1 % (0-4); Hematocrit 37.6 % (37.0-47.0); Hemoglobin 12.4 g/dl (12.0-16.0); Imm Gran Abs Auto 0.01 X10*3/uL (0.00-0.03); Imm Gran Pct Auto 0.2 % (0.0-0.4); Lymphocytes Absolute Auto 1.8 X10*3/uL (1.2-4.9); Lymphocytes Percent Auto 39.5 % (20-40); Mean Corpuscular Hemoglobin 28.7 pg (27.0-33.0); Mean Platelet Volume 9.8 fL (9.4-12.3); Monocytes Absolute Auto 0.4 X10*3/uL (0.1-1.2); Monocytes Percent Auto 7.6 % (2-11); Neutrophils Absolute Auto 2.3 x10*3/uL (2.0-8.3); Neutrophils Percent Auto 49.2 % (45-73); Platelet Count 310 X10*3/uL (160-400); Red Blood Count 4.32 X10*6/uL (4.20-5.50); Red Cell Distribution Width 12.1 % (11.0-16.0); White Blood Count 4.6 X10*3/uL (4.8-10.8)
[2021-07-09 02:32] VITALS: BP 113/77; PULSE 68; RESP 16; O2SAT 100
--- NOTE | 2021-07-09 02:39 | PC.NURSE ---
I assumed nursing care of Michelle at 2300. Since that time she has remained alert and oriented x 3. She states she came to the ED for evaluation of ongoing abdominal issues. When I ask her to describe her symptoms she has difficulty doing so and often begins to discuss procedures and tests and symptoms she had prior to today - zach had this pain for years. She states she has been told she has an ovarian cyst in the past and she wonders if that is the cause of her pain today. She appears extremely thin and pale. The pt states Im not sure Im a fan of that medicine - referring Toradol. She believes it made her nauseated. At time of DC her disbelief in a lack of an unknown cause for her pain is palpable. She expressed distaste in the ER doctor who treated her and expressed her yearning for an answer to whats causing her pain. I assured her that the ER doctors' job is to rule out any emergencies requiring treatment and/or hospitalization and that she could rest assured that she is safe to be discharged. She continued to express her frustration and disbelief that the ER is unable to give her a diagnosis. I encouraged her that no news is better than bad news. She doesnt seem to agree with that notion, however. SHe was extremely bothered by the fact that anxiety was placed on her DC instructions by the discharging doctor. She verbalized an understanding of all DC orders and ambulated out of the ED independently and with steady gait.
== END 2021-07-09 02:47 | disposition home or self-care (01) ==
PROVIDERS: Emergency Provider Emergency Medicine; PCP Internal Medicine
DX: R10.32 Left lower quadrant pain (principal); F41.1 Generalized anxiety disorder; F43.0 Acute stress reaction; Z79.899 Other long term (current) drug therapy
CPT/HCPCS: 36415; 74177; 80053; 81003; 81025; 85025; 99284; J1885; Q9967

== ENCOUNTER 2024-04-07 13:49 | Emergency (ER) | payer OTHER, SELFPAY ==
--- NOTE | ~2024-04-07 | XR_ITS ---
EXAMINATION: XR CHEST CLINICAL INFORMATION: pain COMPARISON: 03/18/2021. TECHNIQUE: 2 views of the chest were obtained. FINDINGS: The cardiac, hilar, and mediastinal contours are normal. The lungs are clear bilaterally. There is no pneumothorax or pleural effusion. There is no focal osseous or soft tissue abnormality. Mild right convex scoliosis of the thoracic spine. XR/XR chest 2V IMPRESSION: No active pulmonary disease. Electronically signed by: Abraham Meier MD 04/07/2024 03:15 PM [facility]
--- NOTE | 2024-04-07 13:50 | ECG_ITS ---
Test Reason : chest pain Blood Pressure : */* mmHG Vent. Rate : 88 BPM Atrial Rate : 88 BPM P-R Int : 122 ms QRS Dur : 100 ms QT Int : 374 ms P-R-T Axes : 57 35 47 degrees QTcB Int : 452 ms Normal sinus rhythm Normal ECG No previous ECGs available Referred By: Generic ED Physician Electronically Signed By: ARASH GARZA
--- NOTE | 2024-04-07 14:02 | ED.GENADULT ---
HPI - General Adult General Chief complaint: Chest Pain Stated complaint: Chest tightness Time Seen by Provider: 04/07/24 18:10 Source: patient Limitations: no limitations History of Present Illness ED Provider: Adelina Alba PA-C HPI narrative: 34-year-old female with a history of anxiety, depression, GERD, IBS with constipation, prior dysrhythmia presents with chest pain. Patient states she has been having intermittent left anterior chest discomfort over the past several days. When it presents, she feels as if her heart is beating ?squeezed?. She is also noting intermittent palpitations. 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 Denies recent cough or cold symptoms or fever. Denies new activity or heavy lifting that could have precipitated her discomfort. Patient does admit that she has been under a great deal of stress lately. Related Data Home Medications ?Medication ?Instructions ?Recorded ?Confirmed levocetirizine 5 mg tablet (Xyzal) 5 mg PO DAILY 08/28/20 pantoprazole 20 mg tablet,delayed 20 mg PO BID 08/28/20 release Previous Rx's ?Medication ?Instructions ?Recorded fluticasone propionate 50 2 spray intranasal DAILY #16 grams 08/28/20 mcg/actuation nasal spray,suspension (Flonase Allergy Relief) albuterol sulfate 90 mcg/actuation 1 inh inhalation QID PRN shortness 03/18/21 aerosol inhaler of breath or wheezing #6.7 grams ondansetron 4 mg disintegrating 4 mg PO Q6H PRN nausea and 03/18/21 tablet vomiting #20 tabs ibuprofen 600 mg tablet 600 mg PO Q6H PRN pain #20 tabs 05/23/21 Allergies Allergy/AdvReac Type Severity Reaction Status Date / Time sulfamethoxazole Allergy Mild RASH Verified 04/07/24 14:04 [From BACTRIM] trimethoprim [From BACTRIM] Allergy Mild RASH Verified 04/07/24 14:04 cefaclor [From Ceclor] Allergy Rash Verified 04/07/24 14:04 Review of Systems Review of Systems: Yes all other systems are reviewed and are negative Constitutional: Constitutional: Denies fatigue and Denies fever(s) Cardiovascular: Cardiovascular: Reports chest pain and Denies dyspnea Respiratory: Respiratory: Denies chest congestion, Denies cough and Denies dyspnea Gastrointestinal: Gastrointestinal: Denies abdominal pain, Denies nausea and Denies vomiting Endocrine: Endocrine: Denies fatigue PMF Past Medical History Attestation statement: The following information was validated with the patient. Medical History (Updated 04/07/24 @ 19:50 by ANDRE Luciano) Ovarian cyst Social History Social History Alcohol intake: current Alcohol intake frequency: a few times a month Patient Tobacco Use Status: Never used Tobacco Smoked in Last 30 Days: No Use of substances other than those prescribed or required for medical reasons: No Advance Directives: No Advance Directives Information Provided: No Do you have a plan to hurt others: No Plan Patient : No Physical Exam ED Vital Signs: Vital Signs - 24 hr 04/07/24 14:03 04/07/24 16:41 04/07/24 17:50 Temperature 98.6 F 98.5 F Pulse Rate 89 88 98 Respiratory Rate 18 16 18 Blood Pressure 132/91 H 120/87 Pulse Oximetry 100 100 97 Oxygen Delivery Method Room Air Room Air Room Air 04/07/24 19:07 Temperature 98.2 F Pulse Rate 81 Respiratory Rate 13 Blood Pressure 113/72 Pulse Oximetry 98 Oxygen Delivery Method Room Air BMI result Body Mass Index 17.5 Const Other: Alert well-appearing Orientation/consciousness: patient oriented x3 Resp Effort & Inspection: normal respiratory effort Cardio Other: Normal peripheral perfusion Skin Other: Warm dry no rash Neuro General: patient oriented x3, gait normal, no focal motor deficits and CN's II-XI intact bilaterally Psych Other: Cooperative Course Course Course Narrative: RME, this is a rapid medical exam performed by Randy Zambrano please refer to primary provider for complete H&P- 34-year-old female presents for evaluation of palpitations over the last few days and chest tightness. She reports bruising her rib about 3 weeks ago at the chiropractor. She had an EKG on arrival, plan for labs and chest x-ray Medical Decision Making Medical Decision Making MDM Narrative: 34-year-old female with a history of anxiety, depression, GERD, IBS with constipation, prior dysrhythmia presents with chest pain. Patient states she has been having intermittent left anterior chest discomfort over the past several days. When it presents, she feels as if her heart is beating ?squeezed?. She is also noting intermittent palpitations. 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 Denies recent cough or cold symptoms or fever. Denies new activity or heavy lifting that could have precipitated her discomfort. Patient does admit that she has been under a great deal of stress lately. Problem: Anxiety History: Per patient I have considered the following differential diagnoses: Anxiety/panic attack, ACS, costochondritis, chest wall strain, PE Plan: ACS was considered, screening labs including cardiac enzymes with a EKG and chest x-ray were obtained from triage. To note the patient's heart score is 0. Thought about PE, however the patient was not complaining of shortness of breath, she is not hypoxic, there are no objective signs symptoms for DVT on exam, she is PERC negative. Thought about costochondritis, however she has not had preceding viral illness, her viral panel is negative. She has no mechanism of injury to suggest chest wall strain. Patient's anxiety and numerous psychosocial stressors could be the cause of her intermittent discomfort. Patient can follow up with primary care. I have independently reviewed the following tests: Labs: No leukocytosis, not anemic, no electrolyte abnormality, not , troponin x2 negative EKG: Normal sinus rhythm, rate 88, no ischemic changes no ectopy Chest x-ray:FINDINGS: The cardiac, hilar, and mediastinal contours are normal. The lungs are clear bilaterally. There is no pneumothorax or pleural effusion. There is no focal osseous or soft tissue abnormality. Mild right convex scoliosis of the thoracic spine. XR/XR chest 2V IMPRESSION: No active pulmonary disease. Electronically signed by: Abraham Meier MD 04/07/2024 03:15 PM [facility] Lab Data 04/07/24 14:31 04/07/24 14:31 Labs: Lab Results 04/07/24 04/07/24 Range/Units 14:31 17:54 WBC 5.7 (4.8-10.8) X10*3/uL RBC 4.17 L (4.20-5.50) X10*6/uL Hgb 12.2 (12.0-16.0) g/dl Hct 35.2 L (37.0-47.0) % MCV 84.4 (80.0-98.0) fL MCH 29.3 (27.0-33.0) pg MCHC 34.7 (31.0-35.0) g/dl RDW 11.9 (11.0-16.0) % Plt Count 267 (160-400) X10*3/uL MPV 8.7 L (9.4-12.3) fL Immature Gran % (Auto) 0.4 (0.0-0.4) % Neut % (Auto) 67.1 (45-73) % Lymph % (Auto) 24.9 (20-40) % [place] % (Auto) 7.2 (2-11) % Eos % (Auto) 0.2 (0-4) % Baso % (Auto) 0.2 (0-2) % Lymph # (Auto) 1.4 (1.2-4.9) X10*3/uL [place] # (Auto) 0.4 (0.1-1.2) X10*3/uL Eos # (Auto) 0.0 (0.0-0.4) X10*3/uL Baso # (Auto) 0.0 (0.0-0.2) X10*3/uL Abs Immat Gran (auto) 0.02 (0.00-0.03) X10*3/uL Absolute Neuts (auto) 3.8 (2.0-8.3) x10*3/uL Absolute Nucleated RBC 0.000 (0.0-0.012) X10*3/uL Nucleated RBC % (auto) 0.0 (0.0-0.2) /100WBC PT 11.7 (10.9-12.4) SEC INR 1.0 (0.9-1.1) D-Dimer High Sensitivty < 150 NG/ML Sodium 131 L (135-145) mmol/L Potassium 3.3 (3.3-5.1) mmol/L Chloride 99 (96-108) mmol/L Carbon Dioxide 27 (22-29) mmol/L Anion Gap 8 L (12-20) BUN 9 (9-16) mg/dL Creatinine 0.66 (0.5-1.4) mg/dL Estim Creat Clear Calc 88.6 Estimated GFR > 60 Random Glucose 99 (60-115) mg/dL Calcium 8.5 D (8.4-10.2) mg/dL Magnesium 2.0 (1.6-2.6) mg/dL Total Bilirubin 0.3 (0.0-1.0) mg/dL AST 20 (5-31) U/L ALT 12 (0-31) U/L Alkaline Phosphatase 74 (39-117) U/L Troponin I High Sens < 2.7 < 2.7 (<3.5-17.0) ng/L Total Protein 6.5 (6.5-8.0) g/dL Albumin 4.0 (3.5-5.0) g/dL Lipase 13 (8-78) U/L TSH 0.31 L (0.32-4.0) uIU/mL Free T4 1.11 (0.71-1.85) ng/dL Beta HCG, Quant < 2 mIU/mL Influenza Type A (PCR) NEGATIVE (Negative) Influenza Type B (PCR) NEGATIVE (Negative) RSV RNA Qual (PCR) NEGATIVE (Negative) SARS-CoV-2 RNA (RT-PCR) NEGATIVE (Negative) Discharge Plan Discharge Clinical Impression: Atypical chest pain, Emotional stress Patient Disposition: Home, Self-Care Instructions: Noncardiac Chest Pain (ED) Additional Instructions: All of your screening labs including 2 cardiac enzymes were normal. There were no concerning changes on your EKG and your chest x-ray is clear. The viral panel was negative as well. Your comfort today is not consistent with cardiac pain. Follow up with your primary care provider as needed. Prescriptions: No Action ibuprofen 600 mg tablet 600 mg PO Q6H PRN (Reason: pain) Qty: 20 0RF pantoprazole 20 mg tablet,delayed release (DR/EC) 20 mg PO BID levocetirizine [Xyzal] 5 mg tablet 5 mg PO DAILY fluticasone propionate [Flonase Allergy Relief] 50 mcg/actuation spray,suspension 2 spray intranasal DAILY Qty: 16 0RF Rx Instructions: administer into each nostril ondansetron 4 mg tablet,disintegrating 4 mg PO Q6H PRN (Reason: nausea and vomiting) Qty: 20 0RF albuterol sulfate 90 mcg/actuation HFA aerosol inhaler 1 inh inhalation QID PRN (Reason: shortness of breath or wheezing) Qty: 6.7 1RF Print Language: Vietnamese
[2024-04-07 14:03] VITALS: BP 132/91; PULSE 89; RESP 18; TEMP 37; O2SAT 100; BMI 17.5
[2024-04-07 14:40] LABS: MANUAL DIFF FLAG NO
[2024-04-07 14:41] LABS: Basophils Percent Auto 0.2 % (0-2); Eosinophils Percent Auto 0.2 % (0-4); Hematocrit 35.2 % (37.0-47.0); Hemoglobin 12.2 g/dl (12.0-16.0); Imm Gran Abs Auto 0.02 X10*3/uL (0.00-0.03); Imm Gran Pct Auto 0.4 % (0.0-0.4); Lymphocytes Absolute Auto 1.4 X10*3/uL (1.2-4.9); Lymphocytes Percent Auto 24.9 % (20-40); Mean Corpuscular HGB Conc 34.7 g/dl (31.0-35.0); Mean Corpuscular Hemoglobin 29.3 pg (27.0-33.0); Mean Corpuscular Volume 84.4 fL (80.0-98.0); Mean Platelet Volume 8.7 fL (9.4-12.3); Monocytes Absolute Auto 0.4 X10*3/uL (0.1-1.2); Monocytes Percent Auto 7.2 % (2-11); Neutrophils Absolute Auto 3.8 x10*3/uL (2.0-8.3); Neutrophils Percent Auto 67.1 % (45-73); Platelet Count 267 X10*3/uL (160-400); Red Blood Count 4.17 X10*6/uL (4.20-5.50); Red Cell Distribution Width 11.9 % (11.0-16.0); White Blood Count 5.7 X10*3/uL (4.8-10.8)
[2024-04-07 14:49] LABS: Prothrombin Time 11.7 SEC (10.9-12.4)
[2024-04-07 14:56] LABS: Alanine Aminotransferase 12 U/L (0-31); Alkaline Phosphatase 74 U/L (39-117); Anion Gap 8 (12-20); Aspartate Amino Transferase 20 U/L (5-31); Bilirubin Total 0.3 mg/dL (0.0-1.0); Blood Urea Nitrogen 9 mg/dL (9-16); Calcium 8.5 mg/dL (8.4-10.2); Carbon Dioxide 27 mmol/L (22-29); Chloride 99 mmol/L (96-108); Creatinine Clr Calc Pharmacy 88.6; Estimated Glomerular Filt Rate > 60; Glucose Random 99 mg/dL (60-115); Lipase 13 U/L (8-78); Potassium 3.3 mmol/L (3.3-5.1); Sodium 131 mmol/L (135-145); Total Protein 6.5 g/dL (6.5-8.0)
[2024-04-07 15:05] LABS: Troponin-I High Sensitivity < 2.7 ng/L (<3.5-17.0)
[2024-04-07 15:06] LABS: HCG Quantitative < 2 mIU/mL
[2024-04-07 15:17] LABS: TSH reflex Free T4 0.31 uIU/mL (0.32-4.0)
[2024-04-07 15:19] LABS: Influenza A PCR NEGATIVE (Negative); Influenza B PCR NEGATIVE (Negative); Resp Syncy Virus RNA Qual PCR NEGATIVE (Negative); SARS COV2 PCR INHOUSE NEGATIVE (Negative)
[2024-04-07 16:41] VITALS: BP 120/87; PULSE 88; RESP 16; TEMP 36.9; O2SAT 100
[2024-04-07 17:16] LABS: D Dimer High Sensitivity < 150 NG/ML
[2024-04-07 17:50] VITALS: PULSE 98; RESP 18; O2SAT 97
[2024-04-07 18:06] LABS: Free T4 (Free Thyroxine) 1.11 ng/dL (0.71-1.85)
[2024-04-07 18:34] LABS: Troponin-I High Sensitivity < 2.7 ng/L (<3.5-17.0)
[2024-04-07 19:07] VITALS: BP 113/72; PULSE 81; RESP 13; TEMP 36.8; O2SAT 98
[2024-04-07 20:53] VITALS: BP 113/72; PULSE 81; RESP 13; TEMP 36.8; O2SAT 98
== END 2024-04-07 20:54 | disposition home or self-care (01) ==
PROVIDERS: Physician Assistant; Emergency Provider Emergency Medicine; PCP Internal Medicine
DX: R07.89 Other chest pain (principal); Z73.3 Stress, not elsewhere classified; Z03.818 Encounter for observation for suspected exposure to other biological agents ruled out; Z79.899 Other long term (current) drug therapy
CPT/HCPCS: 0241U; 36415; 71046; 80053; 83690; 83735; 84439; 84443; 84484; 84702; 85025; 85379; 85610; 93005; 99283; 99285

== ENCOUNTER → 2024-04-07 13:50 | Outpatient (BNV) | payer OTHER, SELFPAY | PROVIDERS: Emergency Provider Emergency Medicine; PCP Internal Medicine; Visit Provider Internal Medicine | DX: R07.9 Chest pain, unspecified (principal) | CPT/HCPCS: 93010 ==

== ENCOUNTER → 2024-04-07 14:03 | Outpatient (BNV) | payer OTHER, MEDICAID, SELFPAY | PROVIDERS: PCP Internal Medicine; Visit Provider Radiology Diagnostic Radiology | DX: R07.9 Chest pain, unspecified (principal) | CPT/HCPCS: 71046 ==

== ENCOUNTER 2024-10-18 12:47 | Emergency (ER) | payer OTHER, SELFPAY ==
--- NOTE | 2024-10-18 12:50 | ED.GENADULT ---
HPI - General Adult General Chief complaint: Abdominal Pain Stated complaint: vomiting weak dizzy Time Seen by Provider: 10/18/24 13:40 Source: patient Mode of arrival: ambulatory Limitations: no limitations History of Present Illness HPI narrative: This is a 34 years old the patient presented to the emergency department with a chief complaint of nausea vomiting diarrhea poor p.o. intake 4 weeks. She has a history of anxiety disorder she has been in a lot of stress. Denies any fever chills Location: abdomen Radiation: non-radiation Severity: mild Quality: burning Pain Consistency: constant Relieving factors: none Exacerbating factors: none Associated symptoms: nausea/vomiting Related Data Home Medications ?Medication ?Instructions ?Recorded ?Confirmed levocetirizine 5 mg tablet (Xyzal) 5 mg PO DAILY 08/28/20 pantoprazole 20 mg tablet,delayed 20 mg PO BID 08/28/20 release Previous Rx's ?Medication ?Instructions ?Recorded fluticasone propionate 50 2 spray intranasal DAILY #16 grams 08/28/20 mcg/actuation nasal spray,suspension (Flonase Allergy Relief) albuterol sulfate 90 mcg/actuation 1 inh inhalation QID PRN shortness 03/18/21 aerosol inhaler of breath or wheezing #6.7 grams ondansetron 4 mg disintegrating 4 mg PO Q6H PRN nausea and 03/18/21 tablet vomiting #20 tabs ibuprofen 600 mg tablet 600 mg PO Q6H PRN pain #20 tabs 05/23/21 Allergies Allergy/AdvReac Type Severity Reaction Status Date / Time sulfamethoxazole (From Allergy Mild RASH Verified 10/18/24 12:52 BACTRIM) trimethoprim (From BACTRIM) Allergy Mild RASH Verified 10/18/24 12:52 cefaclor (From Ceclor) Allergy Rash Verified 10/18/24 12:52 Review of Systems Cardiovascular: Cardiovascular: Reports no additional cardiovascular complaints Respiratory: Respiratory: Reports no additional respiratory complaints Gastrointestinal: Gastrointestinal: Reports as per HPI, Reports diarrhea and Reports vomiting PMFSH Past Medical History Attestation statement: The following information was validated with the patient. 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 Ovarian cyst Social History Social History Alcohol intake: current Alcohol intake frequency: a few times a month Patient Tobacco Use Status: Never used Tobacco Smoked in Last 30 Days: No Use of substances other than those prescribed or required for medical reasons: No Advance Directives: No Advance Directives Information Provided: Yes Do you have a plan to hurt others: No Plan Patient : No Physical Exam ED Exam Exam: No acute distress comfortable in the stretcher Vital Signs: Vital Signs - 24 hr 10/18/24 12:51 10/18/24 14:36 10/18/24 16:26 Temperature 98.1 F 98.8 F Pulse Rate 99 74 76 Respiratory Rate 18 16 16 Blood Pressure 112/75 115/77 112/74 Pulse Oximetry 97 100 100 Oxygen Delivery Method Room Air Room Air Room Air BMI result Body Mass Index 16.5 Const General: cooperative Nutritional Appearance: well nourished Orientation/consciousness: patient oriented x3 Limitations: no limitations HENMT Head: Yes normal to inspection Face and sinus: Yes normal facial exam Throat: Yes posterior oropharynx normal Neck Neck: Yes normal visual inspection and Yes full ROM Resp Effort & Inspection: normal respiratory effort Auscultation: clear to auscultation bilaterally Cardio Jugular venous distension: no JVD Rate: regular rate Rhythm: regular rhythm GI Inspection: Yes normal to inspection Palpation (GI): Soft to palpation, not firm, nontender and no guarding Skin General skin exam: no rashes or lesions noted and elasticity normal Lesions: no lesions Rashes: no rashes Neuro General: patient oriented x3 Course Course Course Narrative: Rapid medical examination performed in triage by Siri Copeland PA-C. Patient is a 34 year old assigned female at presenting to the emergency department with abdominal pain, nausea, and vomiting. Detailed physical exam and review of systems are deferred to the computer education professor. Labs ordered. Patient placed back in the waiting room pending room availability and results. Reevaluation(s) Reevaluation #1: Remained stable labs normal including CBC and chemistry vital signs stable she is not tachycardic she is normotensive afebrile I do not think we need to do any CAT scan on this patient, I think she can be discharged home she does have a antique furniture reproducer that she follows at [facility] she will call the antique furniture reproducer. Time: 15:50 Reevaluation #2: Patient has received IV fluids hemodynamically stable she can be discharged home, she would like to told to crisis about her anxiety we will put the crisis eval she is not suicidal though she is not homicidal I anticipate discharge Time: 16:41 Medications Administered Discontinued Medications Generic Name Dose Route Start Last Admin Trade Name Sheldon PRN Reason Stop Dose Admin Lactated Ringer's 1,000 mls @ 999 mls/hr 10/18/24 14:15 10/18/24 15:09 Lr IV 10/18/24 15:15 999 mls/hr .Q1H1M SHANIQUE Administration Ondansetron HCl 4 mg 10/18/24 14:08 10/18/24 15:10 Ondansetron Hcl 4 Mg/2 Ml Vial IVPUSH 10/18/24 14:09 4 mg ONCE ONE Administration Medical Decision Making Medical Decision Making [facility] Narrative: Patient is here with nausea vomiting unable with keep fluids down reasonable to check electrolytes white count urine test Differential Diagnosis Differential Diagnoses: The differential diagnosis associated with the presentation includes Viral syndrome/colitis/diverticulitis Lab Data 10/18/24 13:29 10/18/24 13:29 Labs: Lab Results 10/18/24 Range/Units 13:29 WBC 6.6 (4.8-10.8) X10*3/uL RBC 4.35 (4.20-5.50) X10*6/uL Hgb 12.5 (12.0-16.0) g/dl Hct 37.4 (37.0-47.0) % MCV 86.0 (80.0-98.0) fL MCH 28.7 (27.0-33.0) pg MCHC 33.4 (31.0-35.0) g/dl RDW 12.4 (11.0-16.0) % Plt Count 279 (160-400) X10*3/uL MPV 9.2 L (9.4-12.3) fL Immature Gran % (Auto) 0.2 (0.0-0.4) % Neut % (Auto) 77.0 H (45-73) % Lymph % (Auto) 16.0 L (20-40) % [place] % (Auto) 6.5 (2-11) % Eos % (Auto) 0.0 (0-4) % Baso % (Auto) 0.3 (0-2) % Lymph # (Auto) 1.1 L (1.2-4.9) X10*3/uL [place] # (Auto) 0.4 (0.1-1.2) X10*3/uL Eos # (Auto) 0.0 (0.0-0.4) X10*3/uL Baso # (Auto) 0.0 (0.0-0.2) X10*3/uL Abs Immat Gran (auto) 0.01 (0.00-0.03) X10*3/uL Absolute Neuts (auto) 5.1 (2.0-8.3) x10*3/uL Absolute Nucleated RBC 0.000 (0.0-0.012) X10*3/uL Nucleated RBC % (auto) 0.0 (0.0-0.2) /100WBC Sodium 139 (135-145) mmol/L Potassium 3.8 (3.3-5.1) mmol/L Chloride 105 (96-108) mmol/L Carbon Dioxide 26 (22-29) mmol/L Anion Gap 12 (12-20) BUN 7 L (9-16) mg/dL Creatinine 0.65 (0.5-1.4) mg/dL Estim Creat Clear Calc 85.2 Estimated GFR > 60 Random Glucose 102 (60-115) mg/dL Calcium 8.9 (8.4-10.2) mg/dL Magnesium 2.1 (1.6-2.6) mg/dL Total Bilirubin 0.5 (0.0-1.0) mg/dL AST 19 (5-31) U/L ALT 13 (0-31) U/L Alkaline Phosphatase 88 (39-117) U/L Total Protein 6.8 (6.5-8.0) g/dL Albumin 4.7 (3.5-5.0) g/dL Lipase 15 (8-78) U/L Beta HCG, Quant Cancelled Urine Color Yellow Urine Appearance Clear Urine pH 6.5 (5.0-9.0) Ur Specific [place] 1.010 (1.005-1.025) Urine Protein Negative (Neg-Trace) mg/dL Urine Glucose (UA) Negative (Negative) mg/dL Urine Ketones Negative (Negative) mg/dL Urine Blood Negative (Negative) Urine Nitrite Negative (Negative) Ur Leukocyte Esterase Trace H (Negative) Urine RBC 0-2 (0-2) /HPF Urine WBC 0-5 (0-5) /HPF Ur Squamous Epith Cells 6-10 (0-2) /HPF Urine Bacteria 1+ (None Seen) Hyaline Casts 0-2 (0-2) /LPF Urine Test NEGATIVE (NEGATIVE) Influenza Type A (PCR) NEGATIVE (Negative) Influenza Type B (PCR) NEGATIVE (Negative) RSV RNA Qual (PCR) NEGATIVE (Negative) SARS-CoV-2 RNA (RT-PCR) NEGATIVE (Negative) Discharge Plan Discharge Clinical Impression: Nausea, Anxiety Vomiting Qualifiers: Vomiting type: unspecified Nausea presence: with nausea Qualified Code(s): R11.2 - Nausea with vomiting, unspecified Patient Disposition: Home, Self-Care Instructions: Acute Nausea and Vomiting (DC), Anxiety (ED) Additional Instructions: Follow-up with your primary care physician and antique furniture reproducer in [place], return if worse Prescriptions: No Action ibuprofen 600 mg tablet 600 mg PO Q6H PRN (Reason: pain) Qty: 20 0RF pantoprazole 20 mg tablet,delayed release (DR/EC) 20 mg PO BID levocetirizine [Xyzal] 5 mg tablet 5 mg PO DAILY fluticasone propionate [Flonase Allergy Relief] 50 mcg/actuation spray,suspension 2 spray intranasal DAILY Qty: 16 0RF Rx Instructions: administer into each nostril ondansetron 4 mg tablet,disintegrating 4 mg PO Q6H PRN (Reason: nausea and vomiting) Qty: 20 0RF albuterol sulfate 90 mcg/actuation HFA aerosol inhaler 1 inh inhalation QID PRN (Reason: shortness of breath or wheezing) Qty: 6.7 1RF Referrals: Chloe Contreras MD [Primary Care Provider, Internal Medicine] Print Language: Malawian
[2024-10-18 12:51] VITALS: BP 112/75; PULSE 99; RESP 18; TEMP 36.7; O2SAT 97; BMI 16.5
[2024-10-18 13:40] LABS: MANUAL DIFF FLAG NO
[2024-10-18 13:42] LABS: Hematocrit 37.4 % (37.0-47.0); Hemoglobin 12.5 g/dl (12.0-16.0); Imm Gran Abs Auto 0.01 X10*3/uL (0.00-0.03); Imm Gran Pct Auto 0.2 % (0.0-0.4); Lymphocytes Absolute Auto 1.1 X10*3/uL (1.2-4.9); Mean Corpuscular HGB Conc 33.4 g/dl (31.0-35.0); Mean Corpuscular Hemoglobin 28.7 pg (27.0-33.0); Mean Corpuscular Volume 86.0 fL (80.0-98.0); NRBC Abs Auto 0.000 X10*3/uL (0.0-0.012); NRBC Pct Auto 0.0 /100WBC (0.0-0.2); Platelet Count 279 X10*3/uL (160-400); Red Blood Count 4.35 X10*6/uL (4.20-5.50); White Blood Count 6.6 X10*3/uL (4.8-10.8)
[2024-10-18 13:46] LABS: Appearance Urine Clear; Glucose Urine UA Negative (Negative); PH 6.5 (5.0-9.0); Specific Gravity - Urine 1.010 (1.005-1.025); UMIC TRIGGER UACC YES
[2024-10-18 13:57] LABS: UPreg QC Valid YES
[2024-10-18 14:01] LABS: Alanine Aminotransferase 13 U/L (0-31); Albumin Level 4.7 g/dL (3.5-5.0); Alkaline Phosphatase 88 U/L (39-117); Anion Gap 12 (12-20); Aspartate Amino Transferase 19 U/L (5-31); Blood Urea Nitrogen 7 mg/dL (9-16); Calcium 8.9 mg/dL (8.4-10.2); Carbon Dioxide 26 mmol/L (22-29); Chloride 105 mmol/L (96-108); Creatinine Clr Calc Pharmacy 85.2; Estimated Glomerular Filt Rate > 60; Lipase 15 U/L (8-78); Magnesium 2.1 mg/dL (1.6-2.6); Potassium 3.8 mmol/L (3.3-5.1); Sodium 139 mmol/L (135-145); Total Protein 6.8 g/dL (6.5-8.0)
[2024-10-18 14:18] LABS: Resp Syncy Virus RNA Qual PCR NEGATIVE (Negative); SARS COV2 PCR INHOUSE NEGATIVE (Negative)
--- OUTSIDE RECORDS SUMMARY | 2024-10-18 14:31 | XMS_ITS | Encounter Summary ---
Author Organization [facility] Medicine Address [address] [address] Care Team Providers Care Roof Fitter Name Role Phone Chloe Contreras MD Primary Care Provider [phone] Reason for Visit * Reason Onset Date Comments Things to be faxed 09/15/2024 Encounter Details Date Type Department Care Team (Late st Contact Info) Description 09/15/2024 Telephone [facility] [address] [facility] [place] [id number] Rosanne Locke MD [facility] [address] [place] [address] Things to be faxed Social History Tobacco Use Types Packs/Day Years Used Date Smoking Tobacco: Never Smokeless Tobacco: Never Alcohol Use Standard Drinks/Week Comments Yes 0 (1 standard drink = 0.6 oz pur e alcohol) Socially Comments Unknown Sex and Gender Information Value Date Recorded Sex Assigned at Female 08/03/2024 10:31 AM EDT Legal Sex Female 4:27 AM EST Gender Identity Female 08/03/2024 10:31 AM EDT Sexual Orientation Not on file documented as of this encounter Miscellaneous Notes * Telephone Encounter - TAO METZGER - 09/20/2024 3:09 PM EDT Notes are faxed to Dr. Palomares at fax number : [phone]. * Telephone Encounter - Tati Lemus - 09/15/2024 11:37 AM EDT Patient is calling to update that patient needs referral for chest xray to be faxed to [facility] [phone] Patient also needs notes of neuro ophthalmology to be faxed as well to [phone] Any questions, please call back at [phone] documented in this encounter Plan of Treatment Upcoming Encounters Date Type Department Care Team (Late st Contact Info) Description 11/01/2024 2:30 PM EDT Office Visit [facility] Endocrine [address] [facility] [place] [phone] Rosanne Locke MD [facility] [address] [place] [address] documented as of this encounter Visit Diagnoses Not on filedocumented in this encounter Care Teams Roof Fitter Relationship Specialty Start Date End Date Chloe Contreras MD [address] [place] [phone] PCP - General Night Nurse 08/03/24 documented as of this encounter
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
[2024-10-18 14:36] VITALS: BP 115/77; PULSE 74; RESP 16; TEMP 37.1; O2SAT 100
[2024-10-18] MEDS: Lactated Ringers 1,000 ML 999 ML IV (15:09)
[2024-10-18 16:26] VITALS: BP 112/74; PULSE 76; RESP 16; O2SAT 100
[2024-10-18 18:17] VITALS: BP 112/74; PULSE 76; RESP 16; TEMP 36.6; O2SAT 100
[2024-10-18 18:37] VITALS: BP 132/88; PULSE 74; RESP 16; O2SAT 99
--- NOTE | 2024-10-18 22:42 | MHC.CARE ---
RAD Team completed CC referral, will follow up tomorrow
== END 2024-10-18 18:39 | disposition home or self-care (01) ==
PROVIDERS: Physician Assistant Medical; Emergency Provider Emergency Medicine; PCP Internal Medicine
DX: R11.2 Nausea with vomiting, unspecified (principal); F41.9 Anxiety disorder, unspecified; Z03.818 Encounter for observation for suspected exposure to other biological agents ruled out
CPT/HCPCS: 36415; 80053; 81001; 81025; 83690; 83735; 85025; 87637; 96361; 96374; 99284; J2405; J7120; S9485

== ENCOUNTER 2025-02-22 17:11 | Emergency (ER) | payer OTHER, SELFPAY ==
--- NOTE | 2025-02-22 17:15 | ED.GENADULT ---
HPI - General Adult General Chief complaint: Eye Problems Stated complaint: FOREIGN OBJECT IN LEFT EYE Time Seen by Provider: 02/22/25 20:01 Source: patient Mode of arrival: ambulatory Limitations: no limitations History of Present Illness ED Provider: Abraham POWELL HPI narrative: The patient is a 35-year-old female presenting to the ED after her rigid contact lens for keratoconus fractured while she was removing it earlier today. She reports that approximately a 2?mm edge of the lens is missing and believes a fragment may still be lodged under the upper eyelid of the lateral left eye. Since the incident she has had persistent sharp ?scratching? sensations, worse with blinking and localized to the upper-left quadrant of the eye. She notes similar episodes in the past when contacts have adhered to or torn on removal. She has been traveling to [place] every two weeks for contact-lens fitting and management but continues to have difficulty with the left lens. No visual acuity change reported. She denies systemic symptoms. Related Data Home Medications ?Medication ?Instructions ?Recorded ?Confirmed levocetirizine 5 mg tablet (Xyzal) 5 mg PO DAILY 08/28/20 pantoprazole 20 mg tablet,delayed 20 mg PO BID 08/28/20 release Previous Rx's ?Medication ?Instructions ?Recorded fluticasone propionate 50 2 spray intranasal DAILY #16 grams 08/28/20 mcg/actuation nasal spray,suspension (Flonase Allergy Relief) albuterol sulfate 90 mcg/actuation 1 inh inhalation QID PRN shortness 03/18/21 aerosol inhaler of breath or wheezing #6.7 grams ondansetron 4 mg disintegrating 4 mg PO Q6H PRN nausea and 03/18/21 tablet vomiting #20 tabs ibuprofen 600 mg tablet 600 mg PO Q6H PRN pain #20 tabs 05/23/21 erythromycin 5 mg/gram (0.5 %) eye 0.5 inch ophthalmic (eye) TID #3.5 02/22/25 ointment grams Allergies Allergy/AdvReac Type Severity Reaction Status Date / Time sulfamethoxazole (From Allergy Mild RASH Verified 02/22/25 17:17 BACTRIM) trimethoprim (From BACTRIM) Allergy Mild RASH Verified 02/22/25 17:17 cefaclor (From Ceclor) Allergy Rash Verified 02/22/25 17:17 Review of Systems Review of Systems: Yes all other systems are reviewed and are negative PMFSH Past Medical History 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 Vital signs as documented. HEAD: Atraumatic, normocephalic. EYES: EOMs intact, pupils equal and appropriately reactive to light, conjunctiva clear, no exudate. Exam by direct visualization, slit-lamp, eyelid inversion, and fluorescein staining reveals no evidence of foreign body, there is a small corneal abrasion noted at the 2 o'clock position approximately 8-10 mm from the edge of the pupil. Negative Malinda sign. ENT: Nares patent, no discharge. Airway patent, no audible stridor, visible mucosa is pink and moist without noted lesions. NECK: trachea is midline, no obvious masses or gross abnormalities. CHEST: Symmetric movement, normal appearance. LUNGS: Non-labored work of breathing. CARDIAC: No evidence of hypoperfusion. ABDOMEN: Nondistended, no obvious injury. : Deferred. EXTREMITIES: Moves all extremities spontaneously without reported pain. No obvious injury or deformity noted. NEURO: Alert and oriented x3, CN II-XII appear grossly intact. Cerebellar Functioning grossly intact. Speech clear and appropriate. SKIN: Warm, dry, color appropriate. No rashes or lesions noted. Course Course Course Narrative: This is a rapid medical exam performed by Nelia Leija NP: Additional HPI, ROS, PE not included below will be deferred to primary provider. Patient is a 35y/o F with history of keratoconus, wears hard contact lenses, noticed a crack in one of the contact lenses and feels as though she has a piece of the contact in her left eye. Sxs for the past hour and a half. Plan: will need exam with fluorescein Medical Decision Making Medical Decision Making MDM Narrative: 9:17 PM 02/22/2025 (Alexx POWELL): The patient is a 35-year-old female presenting to the ED after her rigid contact lens for keratoconus fractured while she was removing it earlier today. She reports that approximately a 2?mm edge of the lens is missing and believes a fragment may still be lodged under the upper eyelid of the lateral left eye. Since the incident she has had persistent sharp ?scratching? sensations, worse with blinking and localized to the upper-left quadrant of the eye. She notes similar episodes in the past when contacts have adhered to or torn on removal. She has been traveling to [place] every two weeks for contact-lens fitting and management but continues to have difficulty with the left lens. No visual acuity change reported. She denies systemic symptoms. On direct visual, slit lamp, and fluorescein exam, with and without eyelid inversion, the patient has has no evidence of a retained foreign body. There is however evidence of a small corneal abrasion noted to the left eye at the 2 o'clock position approximately 8-10 mm from the edge of the pupil. The patient is likely suffering from a corneal abrasion causing a foreign body sensation. Patient states she has follow up tomorrow with long with eye, and an appointment with her biofuels manager in [place] on Thursday. Patient will be treated with erythromycin ointment for her corneal abrasion and importance of follow up with Ophthalmology was reinforced. Patient will be discharged. Admission/Observation Consideration of admission/observation: Escalation of care including admission/observation considered Discharge Plan Discharge Clinical Impression: Foreign body sensation, left eye Corneal abrasion Qualifiers: Encounter type: initial encounter Laterality: left Qualified Code(s): S05.02XA - Injury of conjunctiva and corneal abrasion without foreign body, left eye, initial encounter Patient Disposition: Home, Self-Care Instructions: Corneal Abrasion (ED) Additional Instructions: Thank you for choosing [facility]'s Emergency Department for your care today. At this time there is no indication for admission to the hospital or continued ED observation, and it is safe to discharge you home. There was no obvious piece of your contact remaining in your eye when looking directly with the light, under fluorescein staining, and by microscope/slit-lamp exam. Your fluorescein staining did reveal evidence of a corneal abrasion in your left upper eye, the area of your foreign body sensation. This may indicate that the ripped piece of contact was present in your eye, and caused an abrasion, but was then flushed out by natural tears. Due to the presence of a corneal abrasion we are treating you preventatively with erythromycin ointment. Please apply this as directed to your left eye. You may also take alternating (staggered) doses of ibuprofen 600mg and Tylenol 1000mg every 4 hours as needed for any additional pain. Please follow up with your ophthalmology team in [place] by calling today to confirm your appointment on Thursday for re-evaluation. Please also follow up with your primary care physician for re-evaluation, additional management of your symptoms, and continued preventative care. If you do not have a primary care physician, please call the [facility] at [phone] to establish a new primary care physician. While waiting to establish your new primary care physician, you can call our Walk-in Care Clinic at [phone] for non-emergency needs. Please return to the emergency department if you develop a severe or sudden change in your symptoms, a fever over 100.4 that does not improve with Tylenol or Ibuprofen, recurrent vomiting, or any other new or worsening symptoms or concerns. Prescriptions: New erythromycin 5 mg/gram (0.5 %) ointment 0.5 inch ophthalmic (eye) TID Qty: 3.5 0RF No Action ibuprofen 600 mg tablet 600 mg PO Q6H PRN (Reason: pain) Qty: 20 0RF pantoprazole 20 mg tablet,delayed release (DR/EC) 20 mg PO BID levocetirizine [Xyzal] 5 mg tablet 5 mg PO DAILY fluticasone propionate [Flonase Allergy Relief] 50 mcg/actuation spray,suspension 2 spray intranasal DAILY Qty: 16 0RF Rx Instructions: administer into each nostril ondansetron 4 mg tablet,disintegrating 4 mg PO Q6H PRN (Reason: nausea and vomiting) Qty: 20 0RF albuterol sulfate 90 mcg/actuation HFA aerosol inhaler 1 inh inhalation QID PRN (Reason: shortness of breath or wheezing) Qty: 6.7 1RF Referrals: Chloe Contreras MD [Primary Care Provider, Internal Medicine] Clinical Impression: Corneal abrasion Print Language: Syriac
[2025-02-22 17:16] VITALS: BP 103/62; PULSE 78; RESP 16; TEMP 36.6; O2SAT 100; BMI 17.5
--- OUTSIDE RECORDS SUMMARY | 2025-02-22 21:13 | XMS_ITS | Clinical Summary ---
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 Phone Chloe Contreras MD Primary Care Provider [phone] Rosanne Locke MD Unavailable [phone] Allergies Active Allergy Reactions Criticality Noted Date Comments Amoxicillin Nausea And Vomiting 11/29/2022 Amoxicillin-Pot Clavulanate Nausea And Vomiting Medium 07/22/2017 Cefaclor Rash Low 10/01/2011 Clavulanic Acid Nausea And Vomiting 11/29/2022 Gluten 03/06/2015 Sulfamethoxazole Rash Low 11/29/2022 Sulfamethoxazole-Trimethop rim 10/01/2011 Other Reaction(s): Not available Trimethoprim Rash Low 11/29/2022 Medications cholecalciferol (Vitamin D-3) 50 MCG (2000 UT) tablet TAKE 1 TABLET BY MOUTH ONE TIME EACH DAY 4 Active clindamycin (Cleocin T) 1 % gel Apply topically twice daily. apply to affected area. 5 Active cyanocobalamin (Vitamin B-12) 500 mcg tablet Take 500 mcg by mouth every other day. 5 Active dicyclomine (Bentyl) 10 mg capsule TAKE 1 CAPSULE BY MOUTH FOUR TIMES DAILY BEFORE MEALS AND AT NIGHT 4 Active levocetirizine (Xyzal) 5 mg tablet Take 5 mg by mouth once daily. 5 Active linaCLOtide (Linzess) 72 mcg capsule Take 72 mcg by mouth once daily. do not crush or chew Active LORazepam (Ativan) 1 mg tablet Take 1 mg by mouth if needed. 4 Active magnesium oxide 400 mg magnesium capsule Take 400 mg by mouth. 5 Active Cassidy 0.35 mg tablet Take 1 tablet by mouth once daily. Active ondansetron ODT (Zofran-ODT) 4 mg disintegrating tablet DISSOLVE 1 TABLET ON THE TOP OF THE TONGUE EVERY 8 HOURS NEEDED FOR NAUSEA OR VOMITING 5 Active pantoprazole (ProtoNix) 40 mg EC tablet Take 40 mg by mouth twice daily. Active sertraline (Zoloft) 100 mg tablet Take 100 mg by mouth in the morning. 5 Active sertraline (Zoloft) 50 mg tablet Take 50 mg by mouth in the morning. Active triamcinolone (Nasacort) 55 mcg nasal inhaler INSTILL 1 TO 2 SPRAYS INTO EACH NOSTRIL EVERY DAY 5 Active Encounters Date Type Department Care Team Description 12/20/2024 12:30 PM EDT Telemedicine [facility] Endocrine [address] [facility] [place] [phone] Rosanne Locke MD Enlarged pituitary gland (Primary Dx); Hyperprolactinemia 12/15/2024 Telephone [facility] Endocrine [address] [facility], [address] [place] [phone] Rosanne Locke MD fasting/labs from Last 3 Months Family History Relation Name Status Comments Father Alive Mother Alive Social History Tobacco Use Types Packs/Day Years Used Date Smoking Tobacco: Never Smokeless Tobacco: Never Tobacco Cessation:Counseling Given: Not Answered Alcohol Use Standard Drinks/Week Comments Yes 0 (1 standard drink = 0.6 oz pur e alcohol) Socially Comments Unknown Sex and Gender Information Value Date Recorded Sex Assigned at Female 08/03/2024 10:31 AM EDT Legal Sex Female 4:27 AM EST Gender Identity Female 08/03/2024 10:31 AM EDT Sexual Orientation Not on file Last Filed Vital Signs Vital Sign Reading Time Taken Comments Blood Pressure 117/77 11/01/2024 2:21 PM EDT Pulse 67 11/01/2024 2:21 PM EDT Temperature - - Respiratory Rate - - Oxygen Saturation 98% 11/01/2024 2:21 PM EDT Inhaled Oxygen Concentration - - Weight 46.8 kg (103 lb 3.2 oz) 11/01/2024 2:21 P M EDT Height 165.1 cm (5' 5 ) 11/01/2024 2:21 PM EDT Body Mass Index 17.17 11/01/2024 2:21 PM EDT Plan of Treatment Upcoming Encounters Date Type Department Care Team (Late st Contact Info) Description 06/20/2025 2:30 PM EDT Office Visit [facility] Endocrine [address] [place] [address] Rosanne Locke MD [facility] [address] [place] [address] Health Maintenance Due Date Last Done Comments HIV Screening 1988 Varicella Vaccines (1 of 2 - 13+ 2-dose series) 01/03/2001 Hepatitis C Screening 01/03/2006 Pap Smear 01/03/2009 Cervical Cancer Screening 01/03/2018 HPV/Cotest 01/03/2018 Medicare Annual Wellness (AWV) 12/07/2020 Depression Screening 03/09/2024 COVID-19 Vaccine ( season) 2024 08/04/2020, 07/14/2020 Influenza Vaccine (#1) 2024 Mammogram 2028 05/31/2024, 05/31/2024 DTaP/Tdap/Td Vaccines (9 - Td or Tdap) 08/27/2032 08/27/2022, 05/19/2012, 03/09/2008, Additional history exists HIB Vaccines Completed 11/14/1993, 10/1993, 09/30/1989, Additional history exists IPV Vaccines Completed 11/14/1993, 09/07, 1988, Additional history exists MMR Vaccines Completed 10/25/1997, 05/22/1989 Hepatitis B Vaccines Completed 09/13/1999, 03/05/1999, 01/30/1999 Meningococcal Vaccine Completed 03/04/2006, 006 HPV Vaccines Completed 09/21/2008, 05/07, 03/24/2008, Additional [...] on patient's age to complete this topic Rotavirus Vaccines Aged Out No longer eligible based on patient's age to complete this topic Procedures Procedure Name Priority Date/Time Associated Diagnosis Comments C-REACTIVE PROTEIN Routine 12/16/2024 10 :04 AM EDT Enlarged pituitary gland SEDIMENTATION RATE, AUTOMATED Routine 12/16/2024 10:04 AM EDT Enlarged pituitary gland INSULIN-LIKE GROWTH FACTOR 1 Routine 12/16/2024 10:04 AM EDT Enlarged pituitary gland TSH Routine 12/16/2024 10:04 AM EDT Enlarged pituitary gland T4, FREE Routine 12/16/2024 10:04 AM EDT Enlarged pituitary gland PROLACTIN Routine 12/16/2024 10:04 AM EDT Enlarged pituitary gland CORTISOL AM Routine 12/16/2024 10:04 AM EDT Enlarged pituitary gland from Last 3 Months Results * Cortisol AM (12/16/2024 10:04 AM EDT) Cortisol - AM 11.4 6.2 - 19.4 ug/dL [facility] 1 Blood Venous blood specimen / Unknown 12/16/2024 10:04 AM EDT 12/16/2024 Narrative [facility] - 12/17/2024 10:45 AM EDT Performed at: 01 - [facility] [id number] Cardiopulmonary Technician And Eeg Tech: Holli Aguilera MD, Phone: [phone] us Baljeet Singer MD LAB BLOOD ORDERABLES Final Resu lt [facility] [address] [place] [address], [facility] 1 * Prolactin (12/16/2024 10:04 AM EDT) Pathologist [facility] Prolactin 31.2 4.8 - 33.4 ng/mL [facility] 1 Blood Venous blood specimen / Unknown 12/16/2024 10:04 AM EDT 12/16/2024 Narrative [facility] - 12/17/2024 7:45 AM EDT Performed at: [address] [id number] Cardiopulmonary Technician And Eeg Tech: Holli Aguilera MD, Phone: [phone] Baljeet Singer MD LAB BLOOD ORDERABLES Final Resu lt Performing Organization Address [facility] Co de Phone Number [facility] [address] [place] [address], [facility] 1 * Insulin-like growth factor 1 (IGF-1) (12/16/2024 10:04 AM EDT) Pathologist [facility] IGF I 192 79 - 259 ng/mL [facility] 1 IGF-1, Z Score 0.7 -2.0 - 2.0 S.D. [facility] 1 Blood Venous blood specimen / Unknown 12/16/2024 10:04 AM EDT 12/16/2024 Narrative [facility] - 12/18/2024 7:59 PM EDT Performed at: [facility] [id number] Cardiopulmonary Technician And Eeg Tech: Thierry Crooks MD, Phone: [phone] us Baljeet Singer MD LAB BLOOD ORDERABLES Final Resu lt Performing Organization Address [facility] Co de Phone Number [facility] [address] [place] [address], [facility] 1 * Sedimentation rate, automated (12/16/2024 10:04 AM EDT) Pathologist [facility] Sed Rate-Westergren 2 0 - 32 mm/hr [facility] 1 Blood Venous blood specimen / Unknown 12/16/2024 10:04 AM EDT 12/16/2024 Narrative [facility] - 12/16/2024 11:15 PM EDT Performed at: [address] [place] [id number] Cardiopulmonary Technician And Eeg Tech: Holli Aguilera MD, Phone: [phone] us Baljeet Singer MD LAB BLOOD ORDERABLES Final Resu lt Performing Organization Address [facility] de Phone Number [facility] [address] [place] [address], [facility] 1 * C-reactive protein (12/16/2024 10:04 AM EDT) Pathologist [facility] C-Reactive Protein Quant <1 0 - 10 mg/L [facility] 1 Blood Venous blood specimen / Unknown 12/16/2024 10:04 AM EDT 12/16/2024 Narrative [facility] - 12/17/2024 3:15 AM EDT Performed at: [address] [id number] Cardiopulmonary Technician And Eeg Tech: Holli Aguilera MD, Phone: [phone] us Baljeet Singer MD LAB BLOOD ORDERABLES Final Resu lt Performing Organization Address [facility] de Phone Number [facility] [address] [place] [address], [facility] 1 * TSH (12/16/2024 10:04 AM EDT) Pathologist [facility] TSH 0.634 0.450 - 4.500 uIU/mL [facility] 1 Blood Venous blood specimen / Unknown 12/16/2024 10:04 AM EDT 12/16/2024 Narrative [facility] - 12/17/2024 4:15 AM EDT Performed at: [address] [place] [id number] Cardiopulmonary Technician And Eeg Tech: Holli Aguilera MD, Phone: [phone] us Baljeet Singer MD LAB BLOOD ORDERABLES Final Resu lt [facility] [address] [place] [address], [place] [facility] 1 * T4, free (12/16/2024 10:04 AM EDT) T4Free(Direct) 1.28 0.82 - 1.77 ng/dL [facility] 1 Blood Venous blood specimen / Unknown 12/16/2024 10:04 AM EDT 12/16/2024 Narrative [facility] - 12/17/2024 5:15 AM EDT Performed at: 01 - [facility] [address] [id number] Cardiopulmonary Technician And Eeg Tech: Holli Aguilera MD, Phone: [phone] us Baljeet Singer MD LAB BLOOD ORDERABLES Final Resu lt Performing Organization Address [facility]/ZIP Co de Phone Number [facility] [address] [place] [address], [facility] 1 from Last 3 Months Insurance [employer] Care Teams Blasting Coal Miner Relationship Specialty Start Date End Date Chloe Contreras MD [address] [place] [id number] PCP - General Public Relations Sales Marketing 08/03/24 [place] [address] Fellow Endocrinology 12/20/24
--- OUTSIDE RECORDS SUMMARY | 2025-02-22 21:13 | XMS_ITS | Data Portability ---
Author Organization [place] [facility], Allergy Address [address] [place] [address] Care Team Providers Care Presser And Shaper Knitted Goods Name Role Phone JONINIVIA ESPAÑAE Primary Care Provider [phone] Assessment Encounter Date Assessment Date Assessment LastModified by Organization Details LastModified Time 08/17/2024 08/17/2024 Patient has unfortunately been experiencing significant tinnitus. She has also been experiencing imbalance nearly every other day. Her imbalance is associated with migraine type symptoms with poor focus and worse tinnitus and headaches. 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 Possibility these are related to her pituitary microadenoma considered. Audiometric testing today was normal as was her balance testing. She has consultation with neurosurgeon in [place] in the near future for consideration of surgical intervention. [email or web address] Not available 08/17/2024 12:00:36 Plan of Treatment Reminders Order Date Submit Date Provider Last Modified By Organization Details Last Modified Time Details Appointments None record ed. Lab None record ed. Referral None record ed. Procedures None record ed. Surgeries None record ed. Imaging None record ed. Medication Orders None record ed. Patient TargetsNo targets recorded. Patient InstructionsNo instructions recorded. Reason for Referral None Reported. Results Created Date Observation Date Name Description Value Unit Range Abnormal Flag Note LastModifiedBy Organization Detail LastModifiedTime 08/18/19 25 audio gram No observ ation record ed. BARCODE Not Available 2024 14:54:50 Result Notes None recorded. Problems Name Problem SNOMED Code Status Onset Date Resolution Date Notes Provider Name and Address Organization Details Recorded Time Pituitary microadenom a 306429562 Active 2024 AAMIR LESLIE MD [address] [facility], [place], [address] [place] [facility] [place] 11:37:38 Migraine variants 171313556 Active 2024 AAMIR LESLIE MD [address] [facility] [address], [place], [address], [facility] - [facility] [place] 11:38:18 Bilateral tinnitus 8036021522006 Active 2024 AAMIR LESLIE MD [address] [facility] [address], [place], [address], [facility] - [facility] 11:38:26 Problem Notes None recorded. Procedures Surgical History Date Name Laterality Status Provider Name and Address Organization Details Recorded Time 08/17/2024 Air & Speech Audio with Tymps - 70669, 70874 & 51940 completed MARKELL LOPEZ [address] [address], [place], [address], [facility] - [facility] 08/17/2024 11:52:09 Imaging Results None recorded. Procedure Notes None recorded. Medical Equipment None Reported. Allergies Allergen ID Allergen Name Allergen Category Reaction Reaction Severity Criticality Documentation Date Start Date Code Code System Note Provider Name and Address Organization Details Recorded Time 787643 Ceclor medicatio n rash Not available Not available 08/17/2024 66704 5 RxNorm SUE poon [facility] 11:23:42 533503 Bactrim medicatio n Not available Not available Not available 08/17/2024 66831 9 RxNorm SUE COMCj poon [facility] 11:23:51 Medications Name Sig Start Date Stop Date Status Note LastModified by Organization Details LastModified Time doxycycline hyclate 100 mg capsule TAKE 1 CAPSULE BY MOUTH TWICE A DAY FOR 10 DAYS 08/17 completed Not Available Not Available Not Available prednisone 20 mg tablet TAKE 1 TABLET BY MOUTH EVERY DAY FOR 5 DAYS 08/17 completed Not Available Not Available Not Available sertraline 100 mg tablet TAKE 1 TABLET BY MOUTH EVERY MORNING active Not Available Not Available No t Available pantoprazol e 20 mg tablet,gloria yed release TAKE 2 TABLETS BY MOUTH TWICE DAILY BEFORE MEALS 08/17 completed Not Available Not Available Not Available Nortrel 135 (28) 1 mg-35 mcg tablet TAKE 1 TABLET BY MOUTH DAILY 08/17 completed Not Available Not Available Not Available clindamycin 1 % topical gel APPLY TOPICALLY TO THE AFFECTED AREA TWICE DAILY active Not Available Not Available No t Available cyanocobala min (vit B-12) 500 mcg tablet TAKE 1 TABLET BY MOUTH EVERY OTHER DAY active Not Available Not Available No t Available pantoprazol e 40 mg tablet,gloria yed release TAKE 1 TABLET BY MOUTH TWICE DAILY active Not Available Not Available No t Available triamcinolo ne acetonide 55 mcg nasal spray aerosol INSTILL 1 TO 2 SPRAYS INTO EACH NOSTRIL EVERY DAY active Not Available Not Available No t Available cabergoline 0.5 mg tablet TAKE 1 TABLET BY MOUTH EVERY THURSDAY AND THURSDAY active Not Available Not Available No t Available sertraline 25 mg tablet TAKE 1 TABLET BY MOUTH EVERY MORNING 08/17 completed Not Available Not Available Not Available lorazepam 1 mg tablet TAKE 1 TABLET BY MOUTH ONE HOUR BEFORE INJECTION NEEDED FOR ANXIETY 08/17 completed Not Available Not Available Not Available imipramine 10 mg tablet TAKE 1 TABLET BY MOUTH DAILY AT BEDTIME 08/17 completed Not Available Not Available Not Available albuterol sulfate HFA 90 mcg/actuati on aerosol inhaler INHALE 2 PUFFS BY MOUTH EVERY 4 HOURS IF NEEDED FOR WHEEZING OR COUGH active Not Available Not Available No t Available ketoconazol e 2 % topical cream APPLY TWICE DAILY TO AFFECTED AREAS UNTIL RESOLVED . THEN A FEW TIMES A WEEK FOR MAINTENAN CE 08/17 completed Not Available Not Available Not Available ondansetron 4 mg disintegrat ing tablet DISSOLVE 1 TABLET ON THE TOP OF THE TONGUE EVERY 8 HOURS NEEDED FOR NAUSEA OR VOMITING active Not Available Not Available No t Available sertraline 50 mg tablet TAKE 1 TABLET BY MOUTH EVERY MORNING active Not Available Not Available No t Available dicyclomine 10 mg capsule TAKE 1 CAPSULE BY MOUTH FOUR TIMES DAILY BEFORE MEALS AND AT NIGHT active Not Available Not Available No t Available esomeprazol e magnesium 20 mg capsule,del ayed release TAKE 1 CAPSULE BY MOUTH TWICE DAILY active Not Available Not Available No t Available levocetiriz ine 5 mg tablet TAKE 1 TABLET BY MOUTH EVERY DAY active Not Available Not Available No t Available cholecalcif tere (vitamin D3) 50 mcg (2,000 unit) tablet TAKE 1 TABLET BY MOUTH ONE TIME EACH DAY active Not Available Not Available No t Available Cassidy 0.35 mg tablet TAKE 1 TABLET BY MOUTH EVERY DAY active Not Available Not Available No t Available Linzess 145 mcg capsule TAKE 1 CAPSULE BY MOUTH DAILY 08/17 completed Not Available Not Available Not Available Linzess 72 mcg capsule TAKE 1 CAPSULE BY MOUTH DAILY. DO NOT CRUSH OR CHEW active Not Available Not Available No t Available Trulance 3 mg tablet TAKE 1 TABLET BY MOUTH DAILY 08/17 completed Not Available Not Available Not Available Isibloom 0.15 mg-0.03 mg tablet TAKE 1 TABLET BY MOUTH DAILY 08/17 completed Not Available Not Available Not Available BinaxNOW COVID-19 Ag Self Test kit TEST DIRECTED TODAY 08/17 completed Not Available Not Available Not Available Vitals Date Recorded Body height Body mass index (BMI) Body weight Provider Name and Address Organization Details Last Updated DateTime 08/17/2024 165.1 cm 18 kg/m2 59076.98 g SUE MOYER [place] - [facility] 08/17/2024 11:22:21 Social History None recorded. Functional Status Question Answer Note LastModified by Organizat ion Details LastModified Time What is your level of alcohol consumption? Occasional ccomi Information not available 08/17/2024 Mental Status None recorded. Family History Nothing Reported. Medical History Condition Response Heart Problems Y Arthritis Y Anxiety Y Cancer Y Migraines Y Hypertension Y Gynecological HistoryNo gynecological history recorded. Obstetrics History GPAL:G 0 P 0 0 0 0 Past Encounters Encounter ID Performer Location Encounter Start Date Encounter Closed Date Diagnosis/Indication Diagnosis SNOMED-CT Code Diagnosis ICD10 Code Diagnosis IMO Codes Diagnosis Note [id number] AAMIR LESLIE MD [facility] [address] [address] 08/17/2024 11:11:23 08/17/2024 12:03:29 Pituitary microadenoma 676441653 D35.2 095451 Migraine variants 149080 005 G43.809 56309738 Bilateral tinnitus 38526 97786 102 H93.13 414066 Audiologic al evaluation results: Right ear: Normal hearing with excellent word recognitio n. Left ear: Normal hearing with excellent word recognitio n. Tympanomet ry: Right Ear:Type A Left Ear:Type As Health Concerns Section Related Observation LastModified by Organization Detai ls LastModified Time None Recorded Concern Status LastModified by Organization Details LastModified Time None Recorded Advance Directives Directive None Recorded Payers Insurance Date Sequence Insurance Name Policy Number Policy Weinstein Covered Member ID Weinstein Member ID Guarantor Name 08/17/2024 1 [facility] - DOS ON OR AFTER 2022 - ONE CARE (MEDICARE REPLACEMENT/AD VANTAGE - HMO) Michelle Nguyen [id number] Michelle Nguyen Notes Date Note Type Note Provider Name and Address Organization Details Recorded Time 08/17/2024 text/html ROS as [facility] in the [facility] Tinnitusonset around 06/2024 mild tinnitus fluctuates left to rightmigraine headaches associated with high pitch tinnituspituitary microadenoma - followed by endocrineeye specialist dx [id number] had acute imbalance with dizzy with quick head movementsfrequency about every other day feels poor concentration, poor focus, headaches, imbalance 06/17/24 Jeri, MRI brain with and without contrastPituitary gland mild enlarged 12 x 14 mm with convex superior margin. Superior margin contacts optic chiasm. Small area of hypoenhancement in lower posterior aspect of the anterior pituitary gland measuring 6 x 2 x 8 mm AAMIR LESLIE MD [address] [place] [address], [phone], [facility] - [facility] 08/17/2024 12:01:54 OBGyn Episode No OBEpisode recorded.
--- OUTSIDE RECORDS SUMMARY | 2025-02-22 21:13 | XMS_ITS | Clinical Summary ---
Author Organization [facility] [address] [place] [address] [place] [phone] Phone Care Team Providers Care Addresser Name Role Phone Chloe Contreras MD Primary Care Provider [phone] Allergies Active Allergy Reactions Criticality Noted Date [...] by mouth 2 (two) times a day. 024 Active sertraline (ZOLOFT) 100 mg tablet Take [...] Then a few times weekly for maintenance 024 Active imipramine (TOFRANIL) 10 mg tablet Take 1 tablet (10 mg total) by mouth at bedtime. at bedtime 024 Active magnesium oxide 400 mg magnesium capsule Take 400 mg by mouth. Active albuterol HFA (PROAIR HFA ; PROVENTIL HFA ; VENTOLIN HFA) 90 mcg/actuation inhaler Inhale 2 puffs by mouth every 4 (four) hours if needed for wheezing (or cough). 8.5 g 1 025 Active clindamycin (CLEOCIN T) 1 % gel APPLY TOPICALLY TO FACE DAILY NEEDED FOR ACNE 025 Active Trulance 3 mg tablet Take 1 tablet (3 mg total) by mouth 1 (one) time each day. 025 Active triamcinolone (NASACORT) 55 mcg nasal inhaler INSTILL 1TO 2 SPRAYS INTO EACH NOSTRIL EVERY DAY 16.9 mL 5 025 Active Linzess 72 mcg capsule Take 1 capsule (72 mcg total) by mouth 1 (one) time each day. 025 Active pantoprazole (PROTONIX) 40 mg EC tablet Take 1 tablet (40 mg total) by mouth 2 (two) times a day. 025 Active ondansetron ODT (ZOFRAN-ODT) 4 mg disintegrating tabletIndications :Nausea,Gastroeso phageal reflux disease without esophagitis DISSOLVE 1 TABLET ON THE TOP OF THE TONGUE EVERY 8 HOURS NEEDED FOR NAUSEA OR VOMITING 30 tablet 1 025 Active cholecalciferol (VITAMIN D-3) 50 mcg (2,000 unit) tablet Take 1 tablet (2,000 Units total) by mouth 1 (one) time each day. 90 tablet 1 025 Active cyanocobalamin (VITAMIN B-12) 500 mcg tablet Take 1 tablet (500 mcg total) by mouth every other day. 45 tablet 1 025 Active levocetirizine (XYZAL) 5 mg tablet Take 1 tablet (5 mg total) by mouth 1 (one) time each day in the evening. 90 tablet 1 025 Active norethindrone (HAI,NIDHI,HEA THER,MICRONOR) 0.35 mg tabletIndications :Encounter for repeat prescription of oral contraceptives Take 1 tablet (0.35 mg total) by mouth 1 (one) time each day. 84 tablet 1 025 Active norethindrone (Cassidy) 0.35 mg tablet Take 1 tablet (0.35 mg total) by mouth 1 (one) time each day. 28 tablet 025 Active dicyclomine (BENTYL) 10 mg capsule Take 1 capsule (10 mg total) by mouth 4 (four) times a day if needed (Abdominal cramping). 360 capsule 3 025 2025 Active dicyclomine (BENTYL) 10 mg capsule Take 1 capsule (10 mg total) by mouth 4 (four) times a day (before meals and nightly). 90 capsule 3 025 2024 Discontinued Active Problems Problem Noted Date Diagnosed Date Dyspnea 10/31/2024 Allergic rhinitis 09/14/2024 Prolactinoma 06/23/2024 Overview (09/01/2024): 06/17/2024 MRI brain IMPRESSION: 1. [...] enhancement of the brain parenchyma Endocrine with [facility] 07/12/2024 Discussed Cabergoline treatment. Consulting with neurosurgery. Galactorrhea of both breasts 05/28/2024 PMDD (premenstrual dysphoric disorder) Acne 01/19/2024 Depression 01/19/2024 Overview (01/19/2024): therapist - Mariela Knapp [facility] Esophageal reflux 01/19/2024 Overview (01/19/2024): Normal [...] Date Resolved Date Prolactin increased 05/28/2024 09/15/19 COVID-19 virus infection 01/27/202412/2024 Overview (01/27/2024): 02/2021 Encounters Date Type Department Care Team Description 11/24/2024 11:15 AM EDT Office Visit Obstetrics and Gynecology [address] [phone] Tena Harding CNM Screen for STD (sexually transmitted disease) (Primary Dx) from Last 3 Months Immunizations Immunization Administration Dates Next Due DTP / HiB 11/14/1993, 0,1988,07/14,1988 DTaP / Hib 11/14/1993, 0,1988,07/14,1988 HPV, Quadrivalent 09/21/2008, 9,03/24/2008,10/19,09/06/2006,05/08/2006,03/04/2006 Hep B, Unspecified 09/13/1999,03/05/1999, 999 Hepatitis B Pediatric (Enger ix B; Recombivax HB) to less than 20 yo 09/13/1999,03/05/1999,01/30/1999 HiB 09/30/1989 IPV Inactivated polio (Ipol) 6wks and older 11/14/1993,09/30/1989,1988,04/04 MMR, measles mumps and rubel la Live (Priorix; M-M-R II) 12mo and older 10/25/1997,05/22/1989 Meningococcal Polysaccharide 03/04/2006 Meningococcal, Unspecified 03/04/2006 PPD Test 10/19/2013 Pfizer SARS-CoV-2 COVID-19, mRNA, LNP-S, preservative free 08/04/2020,07/14/2020 [...] Date Comments Depression Therapist - Iraida Knapp [facility] PTSD (post-traumatic stress disorder) Vitamin B12 deficiency Acne Esophageal reflux Normal EGD 2016 Ganglion cyst of volar aspec t of right wrist 05/14/2017 Underweight 09/02/2017 Covid Irritable bowel syndrome Ovarian cyst Allergic rhinitis 09/14/2024 Family History Medical History Relation Name Comments No Known Problems Father Other cancer Maternal Grandfather skin Breast cancer Maternal Grandmother Diabet es, hypertension Diabetes Maternal Grandmother Diabetes Mother Colon cancer Other paternal Coronary artery disease Paternal Grandfather 3 MIs starting in his 50s, nonsmoker, Depression Colon cancer Uncle maternal Relation Name [...] Sexual Orientation Not on file Obstetrics History * This document contains information received from the source organization and may not represent a complete record from that organization. Para Term AB IAB SAB Ectopic Multiple Livin g Live Births 1 0 0 0 0 0 0 0 Date Outcome GA Total Labor Labor/2nd/3rd Weight Sex Type Anes PTL Daniela A1 A5 Name Clin 2004 Last Filed Vital Signs Vital Sign Reading Time Taken Comments Blood Pressure 99/69 11/24/2024 11:09 AM EDT Pulse 67 11/24/2024 11:09 AM EDT Temperature 36.1 C (97 F) 09/14/2024 12:37 PM EDT Respiratory Rate 12 11/24/2024 11:09 AM EDT Oxygen Saturation 98% 11/02/2024 8:39 AM EDT Inhaled Oxygen Concentration - - Weight 45.6 kg (100 lb 9.6 oz) 11/24/2024 11:09 AM EDT Height 165.1 cm (5' 5 ) 11/02/2024 8:39 AM EDT Body Mass Index 16.74 11/02/2024 8:39 AM EDT Plan of Treatment Upcoming Encounters Date Type Department Care Team (Late st Contact Info) Description 03/20/2025 3:00 PM EST Office Visit Adult Medicine [facility] [address], [place] [phone] Chloe Contreras MD [address], [place] Health Maintenance Due Date Last Done Comments HIV Screening 02/09/2022 Hepatitis C Screening 02/09/2022 Medicare Annual Wellness Visit 02/09/2022 Social Influencers of Health Screening 02/09/2022 Depression Screening 03/09/2024 COVID-19 Vaccine ( season) 2024 08/04/2020, 07/14/2020 Influenza Vaccine (#1) 2024 Cervical Cancer Screening: HPV 02/12/2026 02/12/2021, 02/12/2021 Cholesterol Screening (Lipid Panel) 05/11/2028 05/12/2023 DTaP,Tdap,and Td Vaccines (10 - Td or Tdap) 08/27/2032 08/27/2022, 05/19/2012, 03/09/2008, Additional history exists RSV Immunization Adult Patients (1 - 1-dose 75+ series) 01/03/2063 HIB Vaccines Completed 11/14/1993, 090 10/1993, 09/30/1989, Additional history exists IPV Vaccines [...] Procedure Name Priority Date/Time Associated Diagnosis Comments LIPID PANEL Routine 05/12/2023 HPV Routine 02/12/2021 from Last 3 Months or Most Recently Relevant to Health Maintenance Results * Lipid panel (05/12/2023) Pathologist [facility] LDL/HDL Ratio 3 0 - 4 Triglycerides 131 0 - 150 mg/dL Cholesterol 178 0 - 200 mg/dL HDL 70 >=40 mg/dL LDL Cholesterol 82 0 - 100 mg/dL Blood Venous blood specimen / Unknown us Historical Provider LAB BLOOD ORDERABLES Machelle l Result * Cervical Cancer Screening: HPV (02/12/2021) Pathologist [facility] Cervical Cancer Screening: HPV negative, abstracted us Historical Provider HEALTH MAINTENANCE Final Result from Last 3 Months or Most Recently Relevant to Health Maintenance Insurance [employer] Member Subscriber Plan / Payer (Ef fective 2019-Present) Name:JUAN M NGUYEN Relation to Subscriber:Self Name:Juan M Nguyen Payer ID:[id number] Group ID:[id number] Type:Not on file Address: [place] [address] [address] [id number] Care Teams Addresser Relationship Specialty Start Date End Date Chloe Contreras MD [address] [place] [phone] PCP - General Internal Medicine 07/26/24
[2025-02-22 21:37] VITALS: BP 121/82; PULSE 71; TEMP 36.7; O2SAT 97
[2025-02-22] MEDS: Erythromycin Base 0.5% Oph Oin 1 GM TUBE 1 CM EYE-LEFT (21:38)
[2025-02-22] MEDS: Fluorescein Sodium STRIP 1 STRIP EYE-LEFT (21:39)
[2025-02-22] MEDS: Tetracaine HCl 0.5% Oph Sol 5 ML DROPS 3 DROP EYE-LEFT (21:40)
[2025-02-22 21:41] VITALS: BP 121/82; PULSE 71; RESP 16; TEMP 36.7; O2SAT 97
== END 2025-02-22 21:42 | disposition home or self-care (01) ==
PROVIDERS: Emergency Provider Emergency Medicine; PCP Internal Medicine
DX: H57.8A2 Foreign body sensation, left eye (principal)
CPT/HCPCS: 99283